=== PATIENT | female | born 1950 | race Caucasian/White ===

== ENCOUNTER 2021-04-03 03:58 | Outpatient (CLI) | payer MEDICARE, SELFPAY ==
--- NOTE | 2021-04-03 | DI.MAMMO_ITS ---
Exam(s) MAMMO SCREENING EXAM: MAMMO SCREENING CLINICAL HISTORY: SCREENING,Z12.31 TECHNIQUE: Bilateral full field digital CC and MLO mammographic images were obtained with 3D tomosyn thesis and utilizing computer aided detection (CAD). COMPARISON: Available for comparison. FINDINGS: Masses/Architectural Distortion: None seen. Microcalcifications: No suspicious pleomorphic-type are seen. Skin Thickening/Nipple Retraction: None. IMPRESSION: 1. No significant interval change with no specific features of malignancy noted. 2. Unless there is more urgent need, screening mammography is recommended, as per [employer] guidelines. BI-RADS Category 1 - Negative Breast Density - Category B - Scattered areas of fibroglandular density Breast density category C or D implies that the patient has dense breast tissue. Dense breast tissue is very common and is not abnormal but dense breast tissue can make it harder to find cancer on a ma mmogram. Also, dense breast tissue may increase their breast cancer risk. This information about the result of the mammogram report was provided to the patient to raise their awareness. Use this report when you speak with the patient about their risks for breast cancer, which includes their family hist ory. At that time, you may recommend for more screening tests (Ultrasound or MRI) as they might be us eful based on their risk. A negative radiographic report should not delay biopsy if a dominant or clinically suspicious mass is present. Up to ten percent of cancers are not identified on mammography. A negative report may reinforce clinical impression. Adenosis and dense breasts may obscure an underlying neoplasm. False positive reports average 6 to 10%. Patient will receive a letter notifying them of these results.
== END 2021-04-03 04:18 ==
PROVIDERS: Visit Provider Internal Medicine
DX: Z12.31 Encounter for screening mammogram for malignant neoplasm of breast (principal)
CPT/HCPCS: 77063; 77067

== ENCOUNTER 2021-05-12 01:34 | Outpatient (CLI) | payer MEDICARE, SELFPAY ==
--- NOTE | 2021-05-12 | DI.CT_ITS ---
Exam(s) CT CHEST/ABD/PEL W EXAM: CT CHEST/ABD/PEL W CLINICAL HISTORY: COLON CANCER C18.2, S/P RESECTION AND CHEMO, RESTAGING. TECHNIQUE: Imaging Protocol: Axial computed tomography images with coronal and sagittal reformatted images were created and reviewed CONTRAST MATERIAL: Intravenous: Omnipaque 350 Contrast volume:100 ml Oral: None COMPARISON: No exams were available for comparison FINDINGS: CHEST: LUNGS: There are no confluent infiltrates nor pleural effusions. There are no metastatic appearing p ulmonary nodules. No significant focal findings in the trachea and mainstem bronchi.. MEDIASTINUM: There is no hilar nor mediastinal adenopathy. Visualized thyroid unremarkable. CARDIAC: Heart size is normal. There is no pericardial effusion.Caliber of the thoracic aorta is wit hin normal limits. OSSEOUS: Sclerotic bone density noted in the posterior aspect of 1 of of an upper thoracic vertebral body which is most probably benign bone island. No lytic osseous lesions identified.. ABDOMEN: There is no ascites. LIVER: There are no focal hepatic lesions nor dilatation of intrahepatic ducts. GALLBLADDER/BILIARY: No obvious gallbladder pathology. CBD is not dilated. PANCREAS: No evidence of pancreatic mass nor dilatation of the pancreatic duct. SPLEEN: Spleen is not enlarged. There are no intrasplenic lesions. Splenic and portal veins are trevino nt. ADRENALS: There are no significant adrenal masses. KIDNEYS: No calculi nor hydronephrosis. No solid renal masses. No cysts evident. ABDOMINAL AORTA: Abdominal aorta is not enlarged. LYMPH NODES: There is no retroperitoneal nor paraaortic adenopathy. ABDOMINAL WALL: No evidence of significant anterior abdominal wall nor inguinal hernia. GI: There has been partial right hemicolectomy. No bowel obstruction. No leak. No abscess. No selena e air. PELVIS: LYMPH NODES: There is no intrapelvic nor inguinal adenopathy. GI: Is appendix surgically absent.No evidence of sigmoid diverticulitis. URINARY BLADDER: Difficult to assess because of beam hardening artifact from bilateral hip prostheses . REPRODUCTIVE: Uterus and adnexal regions somewhat obscured by beam hardening artifact. No obvious ma sses. No free fluid OSSEOUS: Bilateral hip prostheses. There is benign-appearing sclerotic bone lesion in the right meka c bone. Probably a benign bone island. No lytic osseous lesions identified. IMPRESSION: 1. No metastatic appearing disease in the chest. 2. Partial right hemicolectomy. No evidence of bowel obstruction or free air nor abscess. 3. No abnormal mesenteric masses nor adenopathy. No ascites. 4. Few sclerotic bone lesions which have appearance of benign bone islands more so than metastatic di sease. No lytic osseous lesions identified. There are bilateral hip prostheses. RADIATION DOSE DELIVERED: 1,328.42mGy.cm Total DLP DATA REPOSITORY: All CT scans at this facility are submitted to the National Radiology Data Registry (NRDR) Dose Index Registry (DIR) with the [employer] ([employer]). RADIATION OPTIMIZATION: All CT scans at this facility use at least one of these dose optimization te chniques: automated exposure control; mA and/or kV adjustment per patient size (includes targeted exa ms where dose is matched to clinical indication); or iterative reconstruction.
[2021-05-12] MEDS: Breeza Beverage 473 ML BTL PO (08:06)
[2021-05-12] MEDS: Omnipaque 350 MG/ML 50 ML BTL IJ (08:06)
[2021-05-12 08:12] LABS: Abs Immature Grans 0.01 10^3/uL (0.0-0.06); Absolute Basophil Count 0.05 10^3/uL (0.0-0.2); Absolute Lymphocyte Count 1.91 10^3/uL (1.2-3.4); Absolute Monocyte Count 0.49 10^3/uL (0.1-0.8); Absolute Neutrophil Count 2.51 10^3/uL (1.2-6.7); Eosinophils % 3.9; HCT 40.2 % (36.0-46.0); Immature Grans % 0.2; Lymphocytes % 36.9; MCH 29.8 pg (27.0-33.0); MCHC 32.3 % (32.0-36.0); MCV 92.2 fL (80-95); MPV 11.1 fL (8.0-11.0); Monocytes % 9.5; Neutrophils % 48.5; Nucleated RBC 0 %; Platelet Count 185 10^3/uL (130-400); RBC 4.36 10^6/uL (3.93-5.22); RDW 13.1 % (11.7-14.6); RDW-SD 44.5 fL; WBC 5.17 10^3/uL (4.4-10.8)
[2021-05-12 08:27] LABS: ALT 19 U/L (14-59); AST 17 U/L (15-37); Albumin 3.7 g/dL (3.4-5.0); Alkaline Phosphatase 132 U/L (46-116); BUN 15 mg/dL (7-18); Bilirubin, Total 0.3 mg/dL (0.2-1.0); CREATININE 0.7 mg/dL (0.55-1.02); Calcium 8.8 mg/dL (8.5-10.1); Chloride 104 mmol/L (98-107); Glucose 99 mg/dL (74-106); Sodium 148 mmol/L (136-145)
[2021-05-12] MEDS: Omnipaque 350 MG/ML 100 ML BTL IJ (09:28)
[2021-05-12] MEDS: Normal Saline - Diluent 50 ML VIAL IV (09:29)
[2021-05-12 18:17] LABS: CEA 2.5 ng/mL (See Note)
== END 2021-05-12 01:54 ==
PROVIDERS: Visit Provider Internal Medicine Hematology & Oncology
DX: C18.2 Malignant neoplasm of ascending colon (principal); M85.68 Other cyst of bone, other site
CPT/HCPCS: 74177; 80053; 71260; 82378; 85025; J3490; Q9967

== ENCOUNTER 2021-08-28 03:43 | Outpatient (CLI) | payer MEDICARE, SELFPAY ==
[2021-08-28 12:58] LABS: Abs Immature Grans 0.01 10^3/uL (0.0-0.06); Absolute Basophil Count 0.05 10^3/uL (0.0-0.2); Absolute Eosinophil Count 0.07 10^3/uL (0.0-0.7); Absolute Lymphocyte Count 2.12 10^3/uL (1.2-3.4); Absolute Monocyte Count 0.48 10^3/uL (0.1-0.8); Absolute Neutrophil Count 3.27 10^3/uL (1.2-6.7); Basophils % 0.8; Eosinophils % 1.2; HCT 39.1 % (36.0-46.0); HGB 12.7 g/dL (11.2-15.7); Immature Grans % 0.2; Lymphocytes % 35.3; MCH 30.5 pg (27.0-33.0); MCHC 32.5 % (32.0-36.0); MCV 93.8 fL (80-95); MPV 11.6 fL (8.0-11.0); Neutrophils % 54.5; Nucleated RBC 0 %; Platelet Count 169 10^3/uL (130-400); RBC 4.17 10^6/uL (3.93-5.22); RDW 13.8 % (11.7-14.6); RDW-SD 46.9 fL
[2021-08-28 13:10] LABS: ALT 23 U/L (14-59); AST 23 U/L (15-37); Albumin 3.8 g/dL (3.4-5.0); Alkaline Phosphatase 106 U/L (46-116); Anion Gap 7.6 mmol/L (3-11); BUN 24 mg/dL (7-18); Bilirubin, Total 0.4 mg/dL (0.2-1.0); CO2 25.4 mmol/L (21.0-32.0); CREATININE 0.9 mg/dL (0.55-1.02); Calcium 9.3 mg/dL (8.5-10.1); Chloride 107 mmol/L (98-107); Glucose 113 mg/dL (74-106); Potassium 4.3 mmol/L (3.5-5.1); Sodium 140 mmol/L (136-145); Total Protein 7.1 g/dL (6.4-8.2)
[2021-08-28 23:32] LABS: CEA 2.2 ng/mL (See Note)
== END 2021-08-28 03:44 | disposition home or self-care (01) ==
LOC: LBO 03:44
PROVIDERS: Visit Provider Internal Medicine Hematology & Oncology
DX: C18.2 Malignant neoplasm of ascending colon (principal)
CPT/HCPCS: 36415; 80053; 82378; 85025

== ENCOUNTER 2021-09-22 21:20 | Outpatient (REF) | payer MEDICARE, SELFPAY ==
[2021-09-22 21:51] LABS: Anion Gap 11.2 mmol/L (3-11); BUN 16 mg/dL (7-18); CO2 24.8 mmol/L (21.0-32.0); CREATININE 0.8 mg/dL (0.55-1.02); Calcium 9.1 mg/dL (8.5-10.1); Calculated LDL 138 mg/dL (<100); Chloride 106 mmol/L (98-107); Cholesterol 213 mg/dL (<200); Glucose 123 mg/dL (74-106); HDL Cholesterol 52 mg/dL (40-60); Potassium 3.9 mmol/L (3.5-5.1); Sodium 142 mmol/L (136-145); Triglyceride 117 mg/dL (<150)
[2021-09-24 06:51] LABS: Vitamin D 25 Total 104.4 ng/mL (30-100)
== END 2021-09-22 21:21 | disposition home or self-care (01) ==
LOC: NCHCN 21:20
PROVIDERS: Visit Provider Internal Medicine
DX: E78.5 Hyperlipidemia, unspecified (principal); E55.9 Vitamin D deficiency, unspecified
CPT/HCPCS: 80048; 80061; 82306

== ENCOUNTER → 2022-06-24 01:59 | Outpatient (CLI) | payer MEDICARE, SELFPAY ==
[2022-06-24] MEDS: Barium Sulfate 2% W/V-Berry Smoothie 450 ML BTL 900 ML PO (08:39)
[2022-06-24 08:43] LABS: Abs Immature Grans 0.01 10^3/uL (0.0-0.06); Absolute Basophil Count 0.05 10^3/uL (0.0-0.2); Absolute Eosinophil Count 0.12 10^3/uL (0.0-0.7); Absolute Lymphocyte Count 2.59 10^3/uL (1.2-3.4); Absolute Monocyte Count 0.57 10^3/uL (0.1-0.8); Basophils % 0.8; Eosinophils % 1.9; HCT 40.3 % (36.0-46.0); HGB 13.2 g/dL (11.2-15.7); Immature Grans % 0.2; Lymphocytes % 40.2; MCH 30.5 pg (27.0-33.0); MCHC 32.8 % (32.0-36.0); MCV 93 fL (80-95); MPV 11.2 fL (8.0-11.0); Monocytes % 8.9; Platelet Count 217 10^3/uL (130-400); RBC 4.33 10^6/uL (3.93-5.22); RDW 12.9 % (11.7-14.6); RDW-SD 44.3 fL; WBC 6.44 10^3/uL (4.4-10.8)
[2022-06-24 08:55] LABS: ALT 18 U/L (14-59); AST 25 U/L (15-37); Albumin 3.8 g/dL (3.4-5.0); Alkaline Phosphatase 89 U/L (46-116); Anion Gap 6.6 mmol/L (3-11); BUN 13 mg/dL (7-18); Bilirubin, Total 0.4 mg/dL (0.2-1.0); CO2 27.4 mmol/L (21.0-32.0); Calcium 9.1 mg/dL (8.5-10.1); Chloride 105 mmol/L (98-107); Estimated GFR 60.23 (mL/min/1.73m2); Glucose 94 mg/dL (74-106); Sodium 139 mmol/L (136-145); Total Protein 7.3 g/dL (6.4-8.2)
--- NOTE | 2022-06-24 10:35 | DI.CT_ITS ---
Exam(s) CT CHEST/ABD/PEL W EXAM: CT CHEST/ABD/PEL W CLINICAL HISTORY: H/O COLON CA S/P RESECTION AND CHEMO, C18.2, RESTAGING TECHNIQUE: Imaging Protocol: Axial computed tomography images with coronal and sagittal reformatted images were created and reviewed CONTRAST MATERIAL: Intravenous: Omnipaque 350 contrast volume:100 mL Oral: Yes COMPARISON: CT CT CHEST/ABD/PEL W from 05/12/2021 FINDINGS: CHEST: Tracheobronchial tree: Patent where visualized. Pulmonary parenchyma: No consolidation or dominant measurable mass. No architectural distortion. Stab le tiny subpleural nodules are seen in the left lower lobe. No suspicious or new pulmonary nodules a re seen. Visualized thyroid gland: Unremarkable. Mediastinum and Frances: No dominant adenopathy or fluid collection. The esophagus is unremarkable. Pleura: No effusion or pneumothorax. Heart: The heart is not dilated. No coronary artery calcifications are seen. No pericardial effusion. Pulmonary arteries: No pulmonary emboli are identified. Aorta: Thoracic aorta non-dilated. Atherosclerosis is present. There is no evidence of dissection. Lymph nodes: Within normal limits. Soft tissues: Unremarkable. Bones:Within normal limits for the patient's age. No aggressive osseous lesions are identified. ABDOMEN: Liver: Normal density. No measurable mass. Portal, Superior Mesenteric, and Splenic Veins: Unremarkable. Gallbladder and Biliary Tract: No radiodense calculus or dilation. Pancreas: Normal density, no abnormal calcifications or inflammatory process. Spleen: Normal. Adrenals: No masses seen. Kidneys: Normal size, contour and axis. No radiodense stones or obstructive uropathy. No masses seen. Abdominal Aorta: Abdominal portion non-dilated. Atherosclerosis is present. Bowel: There is no evidence of obstruction. There is a large amount of stool throughout the colon. Th ere has been a partial colectomy. No bowel wall thickening is seen. Peritoneal Cavity: No ascites, collection or mesenteric inflammatory response. No free air. Lymph Nodes: Within normal limits. Bones: Within normal limits for the patient's age. There is artifact in the pelvis from the patient' s bilateral total hip replacements. No aggressive osseous lesions are seen in the bones. Soft Tissues: Unremarkable. PELVIS: There is limited visualization of the pelvis due to artifact from the patient's orthopedic lou rdware. Bladder: No gross abnormality is seen on the visualized portions of the urinary bladder. Reproductive Organs: No gross abnormality is seen in the visualized portions of the reproductive orga ns. Lymph Nodes: Within normal limits. Bones: Within normal limits. IMPRESSION: 1. No evidence of metastatic disease in the chest. 2. No evidence of metastatic disease in the abdomen or pelvis. RADIATION DOSE DELIVERED: 1,165.67mGy.cm Total DLP DATA REPOSITORY: All CT scans at this facility are submitted to the National Radiology Data Registry (NRDR) Dose Index Registry (DIR) with the [employer] ([employer]). RADIATION OPTIMIZATION: All CT scans at this facility use at least one of these dose optimization te chniques: automated exposure control; mA and/or kV adjustment per patient size (includes targeted exa ms where dose is matched to clinical indication); or iterative reconstruction.
[2022-06-24] MEDS: Omnipaque 350 MG/ML 100 ML BTL IJ (10:38)
[2022-06-24] MEDS: Normal Saline Flush 10 ML SYR IVP (10:40)
[2022-06-24 19:48] LABS: CEA 2.6 ng/mL (See Note)
== END ==
PROVIDERS: Visit Provider Internal Medicine Hematology & Oncology
DX: C18.2 Malignant neoplasm of ascending colon (principal)
CPT/HCPCS: 74177; 80053; 71260; 82378; 85025; J3490

== ENCOUNTER 2022-10-21 16:45 | Outpatient (REF) | payer MEDICARE, SELFPAY ==
[2022-10-21 14:42] LABS: HCT 41.4 % (36.0-46.0); HGB 13.8 g/dL (11.2-15.7); MCH 30.3 pg (27.0-33.0); MCHC 33.3 % (32.0-36.0); MCV 91 fL (80-95); MPV 12.2 fL (8.0-11.0); Platelet Count 166 10^3/uL (130-400); RBC 4.56 10^6/uL (3.93-5.22); RDW 13.2 % (11.7-14.6); RDW-SD 43.8 fL; WBC 6.85 10^3/uL (4.4-10.8)
[2022-10-21 16:13] LABS: ALT 35 U/L (14-59); AST 32 U/L (15-37); Alkaline Phosphatase 98 U/L (46-116); Anion Gap 9.9 mmol/L (3-11); BUN 18 mg/dL (7-18); Bilirubin, Total 0.4 mg/dL (0.2-1.0); CO2 25.1 mmol/L (21.0-32.0); CREATININE 0.8 mg/dL (0.55-1.02); Calcium 9.4 mg/dL (8.5-10.1); Chloride 106 mmol/L (98-107); Estimated GFR 78.24 (mL/min/1.73m2); Glucose 96 mg/dL (74-106); Magnesium 2.2 mg/dL (1.8-2.4); Potassium 3.9 mmol/L (3.5-5.1); Sodium 141 mmol/L (136-145); TSH 1.47 uIU/mL (0.36-3.74); Total Protein 7.7 g/dL (6.4-8.2); Vitamin B12 667 pg/mL (193-986)
[2022-10-21 23:04] LABS: CEA 3.4 ng/mL (See Note)
[2022-10-22 14:04] LABS: Albumin 62.3 % (55.8-66.1); Albumin g/dL 4.5 g/dL (3.6-5.2); Total Protein 7.3 g/dL (6.3-8.2)
== END 2022-10-21 16:46 | disposition home or self-care (01) ==
LOC: NCHCN 16:45
PROVIDERS: Visit Provider Internal Medicine
DX: C18.2 Malignant neoplasm of ascending colon (principal); I10 Essential (primary) hypertension; G62.9 Polyneuropathy, unspecified; G25.2 Other specified forms of tremor
CPT/HCPCS: 80053; 85027; 82378; 82607; 83735; 84165; 84443

== ENCOUNTER 2023-01-05 02:51 | Outpatient (CLI) | payer MEDICARE, SELFPAY ==
[2023-01-05 08:08] LABS: Abs Immature Grans 0.02 10^3/uL (0.0-0.06); Absolute Basophil Count 0.06 10^3/uL (0.0-0.2); Absolute Eosinophil Count 0.22 10^3/uL (0.0-0.7); Absolute Lymphocyte Count 2.43 10^3/uL (1.2-3.4); Absolute Neutrophil Count 4.04 10^3/uL (1.2-6.7); Basophils % 0.8; HCT 42.7 % (36.0-46.0); HGB 13.8 g/dL (11.2-15.7); Immature Grans % 0.3; MCH 30.2 pg (27.0-33.0); MCHC 32.3 % (32.0-36.0); MCV 93 fL (80-95); MPV 11.2 fL (8.0-11.0); Monocytes % 8.1; Neutrophils % 54.8; Platelet Count 178 10^3/uL (130-400); RBC 4.57 10^6/uL (3.93-5.22); RDW 13.8 % (11.7-14.6); RDW-SD 47.2 fL; WBC 7.37 10^3/uL (4.4-10.8)
[2023-01-05 08:28] LABS: ALT 28 U/L (14-59); AST 22 U/L (15-37); Albumin 3.7 g/dL (3.4-5.0); Alkaline Phosphatase 88 U/L (46-116); Anion Gap 9.4 mmol/L (3-11); BUN 20 mg/dL (7-18); Bilirubin, Total 0.6 mg/dL (0.2-1.0); CO2 28.6 mmol/L (21.0-32.0); Calcium 8.8 mg/dL (8.5-10.1); Chloride 105 mmol/L (98-107); Estimated GFR 59.86 (mL/min/1.73m2); Glucose 105 mg/dL (74-106); Potassium 3.6 mmol/L (3.5-5.1); Sodium 143 mmol/L (136-145)
[2023-01-05 18:50] LABS: CEA 3.1 ng/mL (See Note)
== END 2023-01-05 02:52 | disposition home or self-care (01) ==
LOC: LBO 02:51
PROVIDERS: PCP Internal Medicine; Visit Provider Internal Medicine Hematology & Oncology
DX: C18.2 Malignant neoplasm of ascending colon (principal)
CPT/HCPCS: 36415; 80053; 82378; 85025

== ENCOUNTER 2023-02-01 19:26 | Outpatient (REF) | payer MEDICARE, SELFPAY ==
[2023-02-02 10:19] LABS: Lyme Ab w Rflx to Lyme Confirm Negative (Negative)
== END 2023-02-01 19:27 | disposition home or self-care (01) ==
LOC: NCHCN 19:26
PROVIDERS: PCP Internal Medicine; Visit Provider Internal Medicine
DX: Z00.00 Encounter for general adult medical examination without abnormal findings (principal)
CPT/HCPCS: 86618

== ENCOUNTER 2023-03-22 19:27 | Outpatient (REF) | payer MEDICARE, SELFPAY ==
[2023-03-22 18:20] LABS: Anion Gap 7.5 mmol/L (3-11); BUN 22 mg/dL (7-18); CO2 29.5 mmol/L (21.0-32.0); CREATININE 0.8 mg/dL (0.55-1.02); Calcium 9.1 mg/dL (8.5-10.1); Chloride 103 mmol/L (98-107); Estimated GFR 78.24 (mL/min/1.73m2); Glucose 87 mg/dL (74-106); Potassium 3.6 mmol/L (3.5-5.1); Sodium 140 mmol/L (136-145)
== END 2023-03-22 19:28 | disposition home or self-care (01) ==
LOC: NCHCN 19:27
PROVIDERS: PCP Internal Medicine; Visit Provider Internal Medicine
DX: I10 Essential (primary) hypertension (principal); R25.8 Other abnormal involuntary movements
CPT/HCPCS: 80048

== ENCOUNTER → 2023-04-13 02:15 | Outpatient (CLI) | payer MEDICARE, SELFPAY ==
--- NOTE | 2023-04-13 | DI.MAMMO_ITS ---
Exam(s) MAMMO SCREENING EXAM: MAMMO SCREENING CLINICAL HISTORY: SCREENING, Z12.31. TECHNIQUE: Bilateral full field digital CC and MLO mammographic images were obtained with 3D tomosyn thesis and utilizing computer aided detection (CAD). COMPARISON: Prior mammograms were reviewed. FINDINGS: There has been no significant change in the appearance and distribution of the fibroglandular tissue. There are no new spiculated masses nor malignant appearing microcalcification groups. There is no significant architectural distortion nor skin thickening-retraction. IMPRESSION: No radiographic evidence of malignancy. BI-RADS Category 1 - Negative Breast Density - Category B - Scattered areas of fibroglandular density Breast density Category C or D implies that the patient has dense breast tissue. Dense breast tissue can make it harder to find cancer on a mammogram. Dense breast tissue is also associated with an incr eased risk of breast cancer. This information about the result of the mammogram report was provided to the patient to raise their awareness. Use this report when you speak with the patient about their risks for breast cancer, which includes their family history. At that time, you may recommend additional screening tests (Ultrasoun d or MRI) as these tests may add significant information. A negative radiographic report should not delay biopsy if a dominant or clinically suspicious mass is present. Up to ten percent of cancers are not identified on mammography. A negative report may reinforce clinical impression. Adenosis and dense breasts may obscure an underlying neoplasm. False positive reports average 6 to 10%. Patient will receive a letter notifying them of these results.
== END ==
PROVIDERS: PCP Internal Medicine; Visit Provider Internal Medicine
DX: Z12.31 Encounter for screening mammogram for malignant neoplasm of breast (principal)
CPT/HCPCS: 77063; 77067

== ENCOUNTER 2023-05-21 07:48 | Emergency (ER) | payer MEDICARE, SELFPAY ==
[2023-05-21] VITALS (11 sets, daily range): BP systolic 146–148; BP diastolic 80–90; PULSE 68–82; RESP 13–20; TEMP 36.6–36.8; O2SAT 96–97
--- NOTE | 2023-05-21 08:00 | RT.EKG_ITS ---
APPROVED REPORT Exam: Resting ECG Reason for Exam: Heart pounding Patient Location: E HR:67 bpm ECG Measurements Heart Rate 67 AXIS SD 130 P 73 QRSd 92 QRS -23 QT 420 T 43 QTc 445 Conclusion Sinus rhythm...normal P axis, V-rate 60- 99 NSR, Normal intervals, LAD, Borderline LAE, No STTW changes, No STEMI, no previous available for francisca reese.
--- NOTE | 2023-05-21 08:12 | W.ED.GENAD ---
Discharge Plan Disposition Patient Disposition: Home Condition: Good Discharge Details Clinical Impression: Insomnia, Mild renal insufficiency, Anxiety, Acute hypokalemia Primary Care Provider: Alireza Peres ED Provider: Sally Toscano Home Meds and New Rx's Prescriptions: New hydroxyzine HCl 10 mg tablet 10 mg PO QHS PRNQty: 14 0RF Rx Instructions: 1 to 2 tablets at night as needed for insomnia potassium chloride 10 mEq tablet extended release 10 meq PO DAILY Qty: 10 0RF Rx Instructions: Take daily while on hydrochlorothiazide. Your potassium and kidney function should be rechecked by your primary care provider at the next visit. No Action hydrochlorothiazide 25 mg tablet 25 mg PO DAILY pregabalin 50 mg capsule 50 mg PO BID lisinopril 20 mg tablet 20 mg PO DAILY cholecalciferol (vitamin D3) 25 mcg (1,000 unit) capsule 25 mcg PO DAILY gabapentin 300 mg capsule 300 mg PO BID PRN Algal [place]-3 DHA 200 mg capsule 200 mg PO DAILY Collagen Plus Vitamin C 125-740 mg capsule 1 cap PO QDAY sertraline 25 mg tablet 25 mg PO DAILY Patient Comments: TAKE ONE TABLET BY MOUTH EVERY DAY sertraline 50 mg tablet 50 mg PO DAILY Patient Comments: TAKE ONE TABLET BY MOUTH EVERY DAY START AFTER TAKING ONE WEEK OF 25MG DAILY Rx Instructions: TAKE ONE TABLET BY MOUTH EVERY DAY START AFTER TAKING ONE WEEK OF 25MG DAILY buspirone 5 mg tablet 5 mg PO BID Patient Comments: TAKE ONE TABLET BY MOUTH TWICE A DAY Discharge Instructions Instructions: Hypokalemia (ED), Insomnia (ED), Anxiety (ED), Impaired Kidney Function (ED) Additional Instructions: 1. Start hydroxyzine 25 mg, 1 tablet at night as needed to help you sleep. 2. Start 10 mEq of potassium once a day until you follow-up with your primary care next week. 3. Return here for any new or worrisome symptoms and keep your follow-up appointment with your primary care next week. Discharge Data Discharge Physician: Sally Toscano Medical Decision Making This is a 72-year-old female who presents with gradually increasing anxiety and insomnia. She is denying any homicidal or suicidal ideation. She also endorses weight loss but denies any chest pain or shortness of breath. She denies any hallucinations. She was seen by her primary care who started her on 25 mg of sertraline a week ago. She has not been using any alcohol or stimulants. She has not tried any [id number] sleep aids. We will check her white count and H&H as well as a comprehensive metabolic panel to check her electrolytes and renal function as well as LFTs. I have already reviewed her EKG which is normal except for left axis deviation and borderline left atrial enlargement. We we will check her TSH to evaluate for hyperthyroidism. Since she is not homicidal or suicidal we will likely discharge her home. I will check interactions between her medications and melatonin, diphenhydramine and trazodone and likely discharge her with outpatient follow-up with her primary care provider. Differential Diagnosis Differential Diagnosis: Anxiety and insomnia, hypothyroidism, anemia, electrolyte abnormality Medical Records Medical records reviewed: Yes I reviewed the patient's medical records. Lab Data Lab results reviewed: Yes I reviewed the patient's lab results. Lab results narrative: Normal CBC. Urinalysis reveals elevated specific gravity 30 mg/dL of protein trace blood elevated urobilinogen negative leukocyte esterase, negative nitrite ECG Data Attestation: I personally reviewed and interpreted this ECG (s) as follows: Prior ECG tracings: available for review HPI General Mode of arrival: ambulatory. Date/Time Provider Initiated Documentation: 05/21/23 08:12. Limitations to Documentation: no limitations. Information obtained by: patient. HPI Narrative: Time seen was on arrival in bed 8. Patient is a 72-year-old female who presents with complaints of anxiety and insomnia which has been gradually increasing over 2 months. The patient lives alone but has a dog. She says she has not slept well for months and states she has not slept at all the last 2 days. She denies any excessive use of caffeine or other stimulants such as decongestants. She states she came in today because her brother is coming to visit in 3 days. He lives in [facility]. She asked him to come visit her and help her because she has such a a lot of wood to chop. She denies any suicidal or homicidal ideation. She denies any previous similar episodes. She does endorse decreased energy and a 12 pound weight loss over several weeks. She denies using any alcohol or drugs. She denies any hallucinations. She made an appointment see her primary care provider Dr. Peres and saw one of their associates, who prescribed sertraline for anxiety about a week ago. They told her it would help with her insomnia but she has not noticed any difference. She also states that at times she feels her heart pounding but has not noted that it was faster than usual. The heart pounding is usually associated with thoughts of things she has to do or memories. She denies any history of PTSD. She denies any chest pain or shortness of breath. She denies leg swelling. She has a history of lymphoma diagnosed by exploratory laparotomy in her 20s. She states it was successfully treated. Several years ago she was found to have colon cancer and underwent a resection with chemotherapy. This was about 5 years ago and she has not had any recurrence. She denies any dysuria, abdominal pain, blood in the stool, swollen lymph nodes, rashes, headache or blurry vision. She has not tried any [id number] medications for her insomnia because she was concerned they might interact with the sertraline. She believes that she has had her thyroid checked within the last year. She recently received immunizations for influenza and COVID. She does take hydrochlorothiazide and lisinopril for hypertension. Related Data Home Medications Medication Instructions Recorded Confirmed ascorbic acid 125 mg-collagen, 1 cap PO QDAY 03/07/23 05/21/23 hydrolyzed 740 mg capsule (Collagen Plus Vitamin C) cholecalciferol (vitamin D3) 25 25 mcg PO DAILY 03/07/23 05/21/23 mcg (1,000 unit) capsule docosahexaenoic acid 200 mg 200 mg PO DAILY 03/07/23 05/21/23 capsule (Algal [place]-3 DHA) gabapentin 300 mg capsule 300 mg PO BID PRN 03/07/23 05/21/23 hydrochlorothiazide 25 mg tablet 25 mg PO DAILY 03/07/23 05/21/23 lisinopril 20 mg tablet 20 mg PO DAILY 03/07/23 05/21/23 pregabalin 50 mg capsule 50 mg PO BID 03/07/23 05/21/23 buspirone 5 mg tablet 5 mg PO BID 05/21/23 05/21/23 hydroxyzine HCl 10 mg tablet 10 mg PO QHS PRN #14 tabs 05/21/23 potassium chloride 10 mEq 10 meq PO DAILY #10 tabs 05/21/23 tablet,extended release sertraline 25 mg tablet 25 mg PO DAILY 05/21/23 05/21/23 sertraline 50 mg tablet 50 mg PO DAILY 05/21/23 05/21/23 Previous Rx's Medication Instructions Recorded hydroxyzine HCl 10 mg tablet 10 mg PO QHS PRN #14 tabs 05/21/23 potassium chloride 10 mEq 10 meq PO DAILY #10 tabs 05/21/23 tablet,extended release Allergies Allergy/AdvReac Type Severity Reaction Status Date / Time Penicillins Allergy Intermediate Verified 05/21/23 08:15 General Stated Complaint: Anxiety NATALY: 3 Review of Systems Narrative: see hpi Gastrointestinal Comments: No GI bleeding Genitourinary Genitourinary: Denies dysuria, Denies urinary hesitancy and Denies urinary urgency Musculoskeletal Comments: No leg pain or swelling Neurologic Comments: No headaches Psychiatric Psychiatric: Reports abnormal sleep pattern, Reports anxiety, Denies visual hallucinations, Denies homicidal ideation and Denies suicidal ideation Comments: The patient states she hears music in her head all the time. 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 PFSH All Active Problems (Updated 05/21/23 @ 11:02 by Sally Toscano MD) Acute hypokalemia (Acute) Anxiety (Chronic) Mild renal insufficiency (Acute) Insomnia (Acute) Medical History (Updated 05/21/23 @ 11:02 by Sally Toscano MD) History of colon cancer Essential hypertension Vitamin D deficiency Hyperlipidemia History of degenerative joint disease Osteoarthritis Hip pain Low back pain Segmental and somatic dysfunction Peripheral neuropathy Pulmonary nodule Hx of colonic polyps Ceruminosis Venous insufficiency Anosmia Action tremor Dry skin Generalized anxiety disorder Bradykinesia Surgical History (Updated 05/21/23 @ 08:47 by Sally Toscano MD) S/P colon resection History of laparotomy Social History Smoking/Tobacco Use Status: Never Smoking risk assessment performed?: Yes Alcohol Intake: current Alcohol Intake frequency: holidays/special occasions only Alcohol type: wine Drug use: Occasionally Substance use type: marijuana Details: Pt used to smoke marijuana to help w/ sleeping; stopped working around 1 month ago Housing: house current occupation: retired What is your relationship status?: Panel score (0-1 are the most socially isolated patients): 0 Do you feel safe at home: Yes Do you feel safe in your relationship?: Yes Female Reproductive History Menstrual Menopause type: natural Exam Const General: cooperative, healthy appearing, comfortable, no acute distress, well developed, well groomed and well hydrated Nutritional Appearance: average body habitus and well nourished Orientation: alert, awake and oriented x3 HENMT Head: normal to inspection, normocephalic and atraumatic Ears: hearing grossly normal bilaterally and external ears normal General nose exam: external nose normal, nares normal and no nasal discharge Face and sinus: normal facial exam, sinuses nontender and face symmetric Mouth: oral mucosae normal, lip normal, tongue normal, oropharynx normal, moist mucous membranes and other (Normal phonation. The patient is handling secretions.) Throat: posterior oropharynx normal and uvula midline Eyes General: appearance normal, both eyes and all related structures Eyelids: eyelids normal Conjunctivae: conjunctivae normal Sclera: sclerae normal Cornea: corneas normal Pupils: PERRL EOM: EOM intact bilaterally and No nystagmus Neck Neck: normal visual inspection, full ROM, no lymphadenopathy, no meningeal signs, trachea midline and supple Lymphatic: no lymphadenopathy noted Chest Chest: normal inspection of the chest Resp Effort & Inspection: normal respiratory effort, able to speak in complete sentences, no audible wheezes, no nasal flaring, no respiratory distress, no retractions, no stridor, not tachypneic, no tracheal deviation, no use of accessory muscles, No prolonged expiratory phase and other (Normal inspiratory to expiratory ratio.) Auscultation: clear to auscultation bilaterally, no rales, no rhonchi, no wheezes and no rubs Tactile Fremitus: tactile fremitus absent Cardio Jugular venous pressure: no JVD Palpation: normal PMI Rate: regular rate Rhythm: regular rhythm Heart Sounds: S1 normal, S2 normal, no gallops, no murmurs and no rubs GI Inspection: normal to inspection and non-distended Palpation: soft, no hepatosplenomegaly, no guarding and nontender Percussion: normal to percussion Auscultation: normal bowel sounds General: No CVA tenderness Back/Spine/Pelvis Back: no CVA tenderness and No back tenderness Cervical Spine: normal cervical lordosis, cervical ROM normal, No cervical muscular tenderness, No pain with cervical ROM, No cervical spinal tenderness and No step off deformity Thoracic/Lumbar Spine: thoracic and lumbar spine normal to inspection, No thoracic spinal tenderness and No lumbar spinal tenderness Pelvis: no pain with anterior-posterior compression and no pain with lateral compression Skin General skin exam: no rashes or lesions noted, turgor normal, no petechiae, no purpura and other (Skin is normal for ethnicity.) Lesions: no lesions Rashes: no rashes Trauma: no lacerations or abrasions Neuro General: patient alert, patient awake, patient oriented x3, moves all extremities, no meningeal signs, no focal motor deficits and CN's II-XI intact bilaterally Cranial Nerves: CN's II-XI intact bilaterally, PERRL, accommodation normal, EOM intact bilaterally, no nystagmus, facial strength normal, tongue midline, hearing normal and no nystagmus Cognition: normal cognition Speech: speech normal Gait: normal gait Motor: muscle tone normal throughout and strength 5/5 throughout Sensory Exam: no sensory deficits noted Extrem General: normal to inspection, full ROM, capillary refill normal, no clubbing, cyanosis or edema and no calf tenderness Psych Appearance: grossly normal Affect: normal affect Attitude: cooperative Thought Process: normal Thought Content: normal Insight: insight good Judgment: judgment good Other: The patient appears to have capacity make medical decisions. Course Social determinants of health: The patient lives alone. She has a dog. She chops her own wood. She still drives and cooks her own food but does not have any other assistance. She tells me that she has asked her [place] help her. Reevaluation(s) Time: 09:33 Reevaluation: The patient is hypokalemic with a potassium of 2.8. She has mild renal insufficiency with a creatinine of 1.2 GFR of 48.09. I have written for 40 mEq of potassium p.o. and will likely recheck it after 1 hour. I will notify the patient. 9:38 AM I have notified the patient of the mild renal insufficiency and hypokalemia normal TSH. My plan is to give her p.o. potassium now and then recheck her potassium in an hour. 10:22 AM I have consulted the pharmacist regarding the patient's insomnia after checking [facility]. She recommended hydroxyzine 25 mg p.o. nightly as needed. The patient's repeat potassium is pending. 10:25 AM The patient tells me she was on gabapentin for neuropathy in her mouth while playing the flute. She said she was given buspirone along with the sertraline but after 2 doses she discontinued it because it made her feel jittery and as though her heart was racing. 10:45 AM I have updated the patient on her repeat potassium and have advised the patient to follow-up with her primary care provider she believes she has an appointment already in a week. I have advised her to return here if she develops any new or worrisome symptoms, such as thoughts of hurting herself or anyone else. I have advised her against eating chocolate because of the methylxanthine's. She states she does not eat chocolate. I have advised her to get exercise and avoid stimulants and to return here for any new or worrisome symptoms. The patient voiced understanding agreement with the discharge plan. All her questions and concerns were addressed prior to discharge. 10:49 AM: I have reviewed the patient's medications and she is also taking hydrochlorothiazide but not take any potassium supplements. I have advised her I will write a prescription for 10 mEq of hydrochlorothiazide to take once a day 11:27 AM: The patient is not taking additional potassium supplements but is continuing on hydrochlorothiazide. 11:33 AM: I have called the patient's pharmacy and they have received her prescriptions. Vital Signs Vital signs: Vital Signs Temperature 36.6 C 05/21/23 07:55 Pulse 82 05/21/23 07:55 Respiratory Rate 14 05/21/23 07:55 Blood Pressure 148/90 H 05/21/23 07:55 Pulse Oximetry 97 05/21/23 07:55 Temperature 36.6 C 05/21/23 07:55 Temperature Source Temporal Artery Scan 05/21/23 07:55 Pulse 82 05/21/23 07:55 Respiratory Rate 14 05/21/23 07:55 Blood Pressure 148/90 H 05/21/23 07:55 Blood Pressure Position Sitting 05/21/23 07:55 Pulse Oximetry 97 05/21/23 07:55 Oxygen Delivery Method Room Air 05/21/23 07:55 Oxygen Flow Rate 0 05/21/23 07:55 Pain Level 0 05/21/23 07:55
[2023-05-21 08:48] LABS: Bilirubin Negative (Negative); Blood Trace-intact (Negative); Clarity Clear (Clear); Glucose Negative (Negative); Ketones Negative (Negative); Leukocyte Esterase Negative (Negative); Nitrite Negative (Negative); Specific Gravity >= 1.030 (1.005-1.025)
[2023-05-21 08:55] LABS: Bacteria Negative HPF (Negative); C & S Indicated? No; Casts 0-2 Hyaline LPF (Negative); Crystals Negative HPF (Negative); Epithelial Cells Few HPF (Negative); Mucus Moderate (Negative); RBC 0-2 HPF (0-2); WBC Negative HPF (0-5)
[2023-05-21 08:56] LABS: Abs Immature Grans 0.02 10^3/uL (0.0-0.06); Absolute Basophil Count 0.04 10^3/uL (0.0-0.2); Absolute Eosinophil Count 0.03 10^3/uL (0.0-0.7); Absolute Lymphocyte Count 1.96 10^3/uL (1.2-3.4); Absolute Monocyte Count 0.57 10^3/uL (0.1-0.8); Absolute Neutrophil Count 4.14 10^3/uL (1.2-6.7); Basophils % 0.6; Eosinophils % 0.4; HCT 40.7 % (36.0-46.0); HGB 13.9 g/dL (11.2-15.7); Immature Grans % 0.3; MCH 31.1 pg (27.0-33.0); MCHC 34.2 % (32.0-36.0); MCV 91 fL (80-95); Monocytes % 8.4; Neutrophils % 61.3; Platelet Count 194 10^3/uL (130-400); RBC 4.47 10^6/uL (3.93-5.22); RDW 12.8 % (11.7-14.6); RDW-SD 42.5 fL; WBC 6.76 10^3/uL (4.4-10.8)
[2023-05-21 09:21] LABS: ALT 23 U/L (14-59); AST 19 U/L (15-37); Alkaline Phosphatase 60 U/L (46-116); Anion Gap 6.3 mmol/L (3-11); BUN 25 mg/dL (7-18); Bilirubin, Total 0.8 mg/dL (0.2-1.0); CO2 30.7 mmol/L (21.0-32.0); CREATININE 1.2 mg/dL (0.55-1.02); Calcium 9.6 mg/dL (8.5-10.1); Chloride 104 mmol/L (98-107); Estimated GFR 48.09 (mL/min/1.73m2); Glucose 112 mg/dL (74-106); Sodium 141 mmol/L (136-145); TSH (W/Ref FT4) 1.24 uIU/mL (0.36-3.74); Total Protein 7.5 g/dL (6.4-8.2); Troponin I < 50 ng/L (<or=60)
[2023-05-21 09:27] LABS: Potassium 2.8 mmol/L (3.5-5.1)
[2023-05-21] MEDS: Potassium Chloride 20 MEQ TABCR 40 MEQ PO (09:37)
[2023-05-21 10:35] LABS: Anion Gap 7.4 mmol/L (3-11); BUN 24 mg/dL (7-18); CO2 29.6 mmol/L (21.0-32.0); Calcium 9.6 mg/dL (8.5-10.1); Chloride 104 mmol/L (98-107); Estimated GFR 59.86 (mL/min/1.73m2); Glucose 104 mg/dL (74-106); Potassium 3.2 mmol/L (3.5-5.1); Sodium 141 mmol/L (136-145)
== END 2023-05-21 11:39 | disposition home or self-care (01) ==
PROVIDERS: Emergency Provider Emergency Medicine Emergency Medical Services; PCP Internal Medicine
DX: R41.9 Unspecified symptoms and signs involving cognitive functions and awareness (principal); G47.00 Insomnia, unspecified; N28.9 Disorder of kidney and ureter, unspecified; E87.6 Hypokalemia; I10 Essential (primary) hypertension; E78.5 Hyperlipidemia, unspecified; E55.9 Vitamin D deficiency, unspecified; Z79.899 Other long term (current) drug therapy
CPT/HCPCS: 36415; 80048; 80053; 93005; 99283; 81003; 81015; 83735; 84443; 84484; 85025; 93010

== ENCOUNTER 2023-05-27 22:25 | Outpatient (REF) | payer MEDICARE, SELFPAY ==
[2023-05-27 14:36] LABS: Anion Gap 9.6 mmol/L (3-11); BUN 19 mg/dL (7-18); CO2 28.4 mmol/L (21.0-32.0); Calcium 10.1 mg/dL (8.5-10.1); Chloride 102 mmol/L (98-107); Estimated GFR 59.86 (mL/min/1.73m2); Glucose 125 mg/dL (74-106); Potassium 3.9 mmol/L (3.5-5.1); Sodium 140 mmol/L (136-145)
== END 2023-05-27 22:26 | disposition home or self-care (01) ==
LOC: NCHCN 22:25
PROVIDERS: PCP Internal Medicine; Visit Provider Family Medicine
DX: E87.6 Hypokalemia (principal); I10 Essential (primary) hypertension; N28.9 Disorder of kidney and ureter, unspecified
CPT/HCPCS: 80048

== ENCOUNTER 2023-06-08 12:49 | Outpatient (REF) | payer MEDICARE, SELFPAY ==
[2023-06-08 15:07] LABS: Anion Gap 8.6 mmol/L (3-11); BUN 9 mg/dL (7-18); CO2 27.4 mmol/L (21.0-32.0); CREATININE 0.8 mg/dL (0.55-1.02); Calcium 10.1 mg/dL (8.5-10.1); Chloride 104 mmol/L (98-107); Estimated GFR 78.24 (mL/min/1.73m2); Glucose 118 mg/dL (74-106); Potassium 4.2 mmol/L (3.5-5.1); Sodium 140 mmol/L (136-145)
[2023-06-08 15:35] LABS: Vitamin D 25 Total 65.1 ng/mL (30-100)
== END 2023-06-08 12:50 | disposition home or self-care (01) ==
LOC: NCHCN 12:49
PROVIDERS: PCP Internal Medicine; Visit Provider Family Medicine
DX: E67.3 Hypervitaminosis D (principal)
CPT/HCPCS: 80048; 82306

== ENCOUNTER 2023-06-13 14:32 | Outpatient (REF) | payer MEDICARE, SELFPAY ==
[2023-06-13 16:33] LABS: ALT 24 U/L (14-59); AST 20 U/L (15-37); Albumin 4.2 g/dL (3.4-5.0); Alkaline Phosphatase 64 U/L (46-116); BUN 14 mg/dL (7-18); Bilirubin, Total 0.5 mg/dL (0.2-1.0); CREATININE 0.9 mg/dL (0.55-1.02); Calcium 10.2 mg/dL (8.5-10.1); Chloride 103 mmol/L (98-107); Estimated GFR 67.92 (mL/min/1.73m2); Glucose 123 mg/dL (74-106); Potassium 4.3 mmol/L (3.5-5.1); Sodium 139 mmol/L (136-145); Total Protein 7.6 g/dL (6.4-8.2)
== END 2023-06-13 14:33 | disposition home or self-care (01) ==
LOC: NCHCN 14:32
PROVIDERS: PCP Internal Medicine; Visit Provider Internal Medicine
DX: R53.1 Weakness (principal); I10 Essential (primary) hypertension; R73.09 Other abnormal glucose
CPT/HCPCS: 80053

== ENCOUNTER 2023-06-16 12:27 | Outpatient (REF) | payer SELFPAY ==
[2023-06-16 14:17] LABS: ALT 23 U/L (14-59); AST 19 U/L (15-37); Alkaline Phosphatase 65 U/L (46-116); Anion Gap 8.9 mmol/L (3-11); BUN 16 mg/dL (7-18); Bilirubin, Total 0.6 mg/dL (0.2-1.0); CO2 30.1 mmol/L (21.0-32.0); Calcium 9.7 mg/dL (8.5-10.1); Chloride 102 mmol/L (98-107); Estimated GFR 59.86 (mL/min/1.73m2); Glucose 143 mg/dL (74-106); Potassium 4.4 mmol/L (3.5-5.1); Sodium 141 mmol/L (136-145); Total Protein 7.1 g/dL (6.4-8.2)
== END 2023-06-16 12:28 | disposition home or self-care (01) ==
LOC: NCHCN 12:27
PROVIDERS: PCP Internal Medicine; Visit Provider Internal Medicine
DX: I10 Essential (primary) hypertension (principal)
CPT/HCPCS: 80053

== ENCOUNTER 2023-06-24 03:04 | Outpatient (CLI) | payer MEDICARE, SELFPAY ==
[2023-06-24 10:18] LABS: Hemoglobin A1C 5.6 % (<5.7)
[2023-06-24 10:23] LABS: Calcium 9.8 mg/dL (8.5-10.1)
[2023-06-24 21:04] LABS: Parathyroid Hormone,Intact 34 pg/mL (19-88)
== END 2023-06-24 03:05 | disposition home or self-care (01) ==
LOC: LBO 03:04
PROVIDERS: PCP Internal Medicine; Visit Provider Internal Medicine
DX: Z00.00 Encounter for general adult medical examination without abnormal findings (principal)
CPT/HCPCS: 36415; 82310; 83036; 83970

== ENCOUNTER 2023-06-27 12:59 | Emergency (ER) | payer MEDICARE, SELFPAY ==
[2023-06-27 13:27] VITALS: BP 149/95; PULSE 74; RESP 16; TEMP 37.1; O2SAT 97
--- NOTE | 2023-06-27 14:28 | DI.CT_ITS ---
Exam(s) CT HEAD WO/W EXAM: CT HEAD WO/W CLINICAL HISTORY: Concern for subacute CVA. TECHNIQUE: Imaging Protocol: Both noninfused and contrast infused CT scans of the brain were perform ed. IV Contrast Dose =75 cc Axial computed tomography images with coronal and sagittal reformatted images were created and review ed COMPARISON: No exams were available for comparison FINDINGS: There are no skull fractures nor fluid in the visualized paranasal sinuses. There is no evidence of intracranial hemorrhage, mass effect, or shift of midline structures. There are no extra-axial fluid collections. The ventricles are not enlarged or shifted and there is no blo od within the ventricular system nor within the basal cisterns.There is moderate bilateral periventri cular hypodensity consistent with chronic small vessel disease. No obvious asymmetric infarct. Ther e are no ring enhancing lesions in the brain. No abnormal meningeal enhancement. There are no ring enhancing lesions in the brain and there is no abnormal meningeal enhancement, foca l or diffuse. IMPRESSION: There is moderate amount of symmetrical bilateral periventricular hypodensity consistent with chronic small vessel disease. No obvious acute infarct. If clinically indicated follow-up MRI with diffusi on imaging can be performed. No significant enhancing intracranial findings. RADIATION DOSE DELIVERED: Total DLP DATA REPOSITORY: All CT scans at this facility are submitted to the National Radiology Data Registry (NRDR) Dose Index Registry (DIR) with the [employer] (A[employer]). RADIATION OPTIMIZATION: All CT scans at this facility use at least one of these dose optimization te chniques: automated exposure control; mA and/or kV adjustment per patient size (includes targeted exa ms where dose is matched to clinical indication); or iterative reconstruction.
--- NOTE | 2023-06-27 14:28 | ED.GENADUL_ITS ---
Discharge Plan Disposition Patient Disposition: Home Discharge Details Clinical Impression: Weakness Primary Care Provider: Alireza Peres ED Provider: George Mcclendon Sheldahl Meds and New Rx's Prescriptions: Continued hydrochlorothiazide 25 mg tablet 25 mg PO DAILY pregabalin 50 mg capsule 50 mg PO BID lisinopril 20 mg tablet 20 mg PO DAILY cholecalciferol (vitamin D3) 25 mcg (1,000 unit) capsule 25 mcg PO DAILY gabapentin 300 mg capsule 300 mg PO BID PRN Algal [place]-3 DHA 200 mg capsule 200 mg PO DAILY Hold Instructions: Pt Stopped/Never Started Collagen Plus Vitamin C 125-740 mg capsule 1 cap PO QDAY sertraline 25 mg tablet 25 mg PO DAILY Patient Comments: TAKE ONE TABLET BY MOUTH EVERY DAY sertraline 50 mg tablet 50 mg PO DAILY Patient Comments: TAKE ONE TABLET BY MOUTH EVERY DAY START AFTER TAKING ONE WEEK OF 25MG DAILY Rx Instructions: TAKE ONE TABLET BY MOUTH EVERY DAY START AFTER TAKING ONE WEEK OF 25MG DAILY buspirone 5 mg tablet 5 mg PO BID Patient Comments: TAKE ONE TABLET BY MOUTH TWICE A DAY hydroxyzine HCl 10 mg tablet 10 mg PO QHS PRNQty: 14 0RF Rx Instructions: 1 to 2 tablets at night as needed for insomnia potassium chloride 10 mEq tablet extended release 10 meq PO DAILY Qty: 10 0RF Rx Instructions: Take daily while on hydrochlorothiazide. Your potassium and kidney function should be rechecked by your primary care provider at the next visit. Discharge Instructions Instructions: Weakness (ED) Additional Instructions: You are seen in the emergency department for your weakness and difficulty with fine motor controls. Your CAT scan showed no sign of a stroke. You advised to obtain MRI of your head. You elected to go home. Please return to the emergency department, as we discussed if you develop any weakness facial droop or headache. Please otherwise follow-up with your primary care provider later this week. Discharge Data Discharge Date/Time-TO BE ENTERED AT DEPARTURE: 06/27/23 18:46 HPI General Date/Time Provider Initiated Documentation: 06/27/23 13:35 . HPI Narrative: MDM This is an overall well-appearing normothermic and not tachycardic 72-year-old female with a history of colonic cancer status post remote treatment with 12 cycles of FOLFOX now with complaints of fine motor difficulties and a heaviness in her head for the past 3 days concerning for subacute CVA. No dizziness nor nystagmus so did not apply the hints exam as my suspicion was low for posterior circulation CVA. Patient certainly outside of the window for tPA and is neurologically intact so we will proceed with a dry CT head. If dry scan is unremarkable we will also complete a contrast study to assess for any metastatic disease intracranially. No chest pain to suggest ACS however based on age will obtain ECG. No fevers nor nuchal rigidity to suggest meningitis I do not feel that the patient requires a lumbar puncture. Not confused to suggest encephalitis. No tonic-clonic activity to suggest seizure so I do not feel that the patient requires an EEG. No weight loss nor fevers nor history of polymyalgia rheumatica to suggest temporal arteritis. Will assess basic electrolytes and obtain ECG. No neck pain to suggest cervical arterial dissection. No pain or proportion to suggest necrotizing soft tissue infection. Will also complete a single view chest x-ray though in the absence of chest pain my suspicion for dissection is low. 3:25 PM CBC lacks anemia thrombocytopenia and leukocytosis. 3:30 PM Reassured normal TSH. Negative troponin and given duration of time since symptoms began we will not pursue second troponin. Basic metabolic panel showing no JUVENAL and no acute electrolyte abnormalities. Reassuring normal magnesium. 3:53 PM Urinalysis showing trace blood. Microscopy pending. 4:06 PM Negative microscopy with no hematuria. 6:[address] head read as chronic small vessel disease. No obvious infarct. Reassuring negative chest x-ray. COVID-negative. 6:27 PM Met with the patient and she was feeling the same. She was not having any weakn ess. I advised her that given her negative CT head I was planning on hospitalizing her to obtain MRI. Patient want to go home. On reassessment the patient remains neurologically intact. Good 5 out of 5 wallcovering hanger strength. I advised her to return to the emergency department if she developed any focal weakness any headache difficulty speaking or slurring of words. She lives alone and I instructed her to call an ambulance if she had any concerns. Her discharge instructions were given to her with a friend present in the room. She understood her return indications and withdrew her consent for care. She was discharged with empiric trial of expectant outpatient management. 10:54 PM I have asked health aboriginal community council member Elke to have the patient seen in follow- up later this week by her primary care provider as she will likely benefit from an MRI. Chronic conditions affecting the care of the patient: Colonic cancer History obtained from an outside historian: N/A External record review: [facility] EMR Diagnostic interpretations performed by me: Per my independent interpretation chest x-ray shows: Per my independent interpretation EKG shows: Narrow complex normal sinus rhythm at a rate of 73. Left axis deviation no signs of LVH based on voltage criteria. Short IL interval at 110 ms. No obvious delta wave. QTc within normal limits. T wave flattening in leads aVL and V2. Compared to prior dated last month T wave flattening in aVL is new. T wave flattening in V2 similar. No acute injury pattern. Medications: N/A Social determinants of health affecting disposition: N/A Management discussed with: N/A Treatment/interventions considered: Hospitalization but deferred based on patient preference Response to therapies provided: N/A HPI This is a 72-year-old female with history of colonic cancer arrived to the emergency department in the setting of difficulty with fine motor skills that began 3 days ago. Patient reports that she had difficulty making a ponytail and crumpling up newspaper to light a fire. She has also felt generally weak. She did not notice difficulty with 1 side more than the other side. She has also had difficulty sleeping for the past approximately 1 month. She denies any headache nausea vomiting chest pain shortness of breath but does endorse a heaviness in her head. She has not been dizzy. She has not had any di fficulty moving. She denies anticoagulation and diabetes. She denies any fevers or neck stiffness. She did discontinue her sertraline several weeks ago. She denies routine tobacco, ethanol, and illicits. No recent falls nor balance issues. Exam General: Well-appearing in no acute distress speaking in complete sentences. Head: Normocephalic, atraumatic. Eye:[Pupils equal, round reactive to light.] Extraocular eye movements intact. No conjunctival injection. No scleral icterus. Ear, nose, mouth, throat: Grossly normal inspection. Normal voice, handling secretions normally. Neck: Trachea midline. Cardiovascular: Well-perfused distal extremities. Regular rate and rhythm. Respiratory: Nonlabored respiration. Clear lungs. Gastrointestinal: Nondistended abdomen. Soft nontender. Musculoskeletal: No significant lower extremity pitting edema. Moving all 4 extremities spontaneously. Skin: Normal for age and race, grossly normal temperature and turgor. No acute rash. Neurologic: Alert and appropriate, no apparent acute deficits. GCS 15. Cranial nerves II through XII intact grossly. No dysmetria. No dysdiadochokinesia. No pronator drift. No facial droop. 5 out of 5 bilateral upper and lower extremity strength. NIH stroke scale 0. Psychiatric: Mood and manner are appropriate. Grooming and personal hygiene are appropriate. Related Data Home Medications Medication Instructions Recorded Confirmed ascorbic acid 125 mg-collagen, 1 cap PO QDAY 03/07/23 06/27/23 hydrolyzed 740 mg capsule (Collagen Plus Vitamin C) cholecalciferol (vitamin D3) 25 25 mcg PO DAILY 03/07/23 06/27/23 mcg (1,000 unit) capsule docosahexaenoic acid 200 mg 200 mg PO DAILY 03/07/23 06/27/23 capsule (Algal [place]-3 DHA) gabapentin 300 mg capsule 300 mg PO BID PRN 03/07/23 06/27/23 hydrochlorothiazide 25 mg tablet 25 mg PO DAILY 03/07/23 06/27/23 lisinopril 20 mg tablet 20 mg PO DAILY 03/07/23 06/27/23 pregabalin 50 mg capsule 50 mg PO BID 03/07/23 06/27/23 buspirone 5 mg tablet 5 mg PO BID 05/21/23 06/27/23 hydroxyzine HCl 10 mg tablet 10 mg PO QHS PRN #14 tabs 05/21/23 06/27/23 potassium chloride 10 mEq 10 meq PO DAILY #10 tabs 05/21/23 06/27/23 tablet,extended release sertraline 25 mg tablet 25 mg PO DAILY 05/21/23 06/27/23 sertraline 50 mg tablet 50 mg PO DAILY 05/21/23 06/27/23 Previous Rx's Medication Instructions Recorded hydroxyzine HCl 10 mg tablet 10 mg PO QHS PRN #14 tabs 05/21/23 potassium chloride 10 mEq 10 meq PO DAILY #10 tabs 05/21/23 tablet,extended release Allergies Allergy/AdvReac Type Severity Reaction Status Date / Time Penicillins Allergy Intermediate Verified 06/27/23 14:35 General Stated Complaint: CVA/TIA NATALY: 3 PFSH All Active Problems (Updated 06/27/23 @ 18:32 by George Mcclendon MD) Weakness (Acute) Medical History (Updated 06/27/23 @ 18:32 by George Mcclendon MD) History of colon cancer Essential hypertension Vitamin D deficiency Hyperlipidemia History of degenerative joint disease Osteoarthritis Hip pain Low back pain Segmental and somatic dysfunction Peripheral neuropathy Pulmonary nodule Hx of colonic polyps Ceruminosis Venous insufficiency Anosmia Action tremor Dry skin Generalized anxiety disorder Bradykinesia Surgical History (Updated 05/21/23 @ 08:47 by Sally Toscano MD) S/P colon resection History of laparotomy Social History Smoking/Tobacco Use Status: Never Smoking risk assessment performed?: Yes Alcohol Intake: current Alcohol Intake frequency: holidays/special occasions only Alcohol type: wine Drug use: Occasionally Substance use type: marijuana Housing: house current occupation: retired What is your relationship status?: Panel score (0-1 are the most socially isolated patients): 0 Do you feel safe at home: Yes Do you feel safe in your relationship?: Yes Female Reproductive History Menstrual Menopause type: natural Course Vital Signs Vital signs: Vital Signs Temperature 37.1 C 06/27/23 13:27 Pulse 74 06/27/23 13:27 Respiratory Rate 16 06/27/23 13:27 Blood Pressure 149/95 H 06/27/23 13:27 Pulse Oximetry 97 06/27/23 13:27 Temperature 37.1 C 06/27/23 13:27 Temperature Source Temporal Artery Scan 06/27/23 13:27 Pulse 74 06/27/23 13:27 Respiratory Rate 16 06/27/23 13:27 Respiratory Effort Normal 06/27/23 14:25 Respiratory Depth Normal 06/27/23 14:25 Blood Pressure 149/95 H 06/27/23 13:27 Blood Pressure Position Sitting 06/27/23 13:27 Pulse Oximetry 97 06/27/23 13:27 Oxygen Delivery Method Room Air 06/27/23 13:27 Oxygen Flow Rate 0 06/27/23 13:27
--- NOTE | 2023-06-27 14:30 | DI.RAD_ITS ---
Exam(s) XR CHEST 1V IN DI DEPT EXAM: XR CHEST 1V IN DI DEPT CLINICAL HISTORY: Generalized weakness. TECHNIQUE: 2D digital imaging was performed. COMPARISON: No exams were available for comparison FINDINGS: Single AP portable view. Heart size is upper normal. The mediastinum is not widened. Lungs are clear. No infiltrates nor obvious pleural effusions. IMPRESSION: No acute pulmonary findings on this single AP portable view of the chest. DATA REPOSITORY: RADIATION DOSE DELIVERED:
--- NOTE | 2023-06-27 14:45 | RT.EKG_ITS ---
APPROVED REPORT Exam: Resting ECG Reason for Exam: Weakness Patient Location: E HR:73 bpm ECG Measurements Heart Rate 73 AXIS CO 110 P 70 QRSd 74 QRS 20 QT 402 T 62 QTc 442 Conclusion Sinus rhythm...normal P axis, V-rate 60- 99 Narrow complex normal sinus rhythm at a rate of 73. Left axis deviation no signs of LVH based on vol tage criteria. Short CO interval at 110 ms. No obvious delta wave. QTc within normal limits. T wa ve flattening in leads aVL and V2. Compared to prior dated last month T wave flattening in aVL is ne w. T wave flattening in V2 similar. No acute injury pattern.
[2023-06-27 15:02] LABS: Abs Immature Grans 0.01 10^3/uL (0.0-0.06); Absolute Basophil Count 0.06 10^3/uL (0.0-0.2); Absolute Eosinophil Count 0.08 10^3/uL (0.0-0.7); Absolute Lymphocyte Count 2.47 10^3/uL (1.2-3.4); Absolute Neutrophil Count 4.49 10^3/uL (1.2-6.7); Basophils % 0.8; HCT 44.4 % (36.0-46.0); HGB 14.7 g/dL (11.2-15.7); Immature Grans % 0.1; MCH 30.8 pg (27.0-33.0); MCHC 33.1 % (32.0-36.0); MCV 93 fL (80-95); MPV 11.2 fL (8.0-11.0); Monocytes % 7.8; Neutrophils % 58.3; Platelet Count 261 10^3/uL (130-400); RBC 4.77 10^6/uL (3.93-5.22); RDW 13.4 % (11.7-14.6); RDW-SD 45.9 fL; WBC 7.71 10^3/uL (4.4-10.8)
[2023-06-27 15:27] LABS: Anion Gap 10.5 mmol/L (3-11); BUN 11 mg/dL (7-18); CO2 26.5 mmol/L (21.0-32.0); CREATININE 0.8 mg/dL (0.55-1.02); Chloride 103 mmol/L (98-107); Estimated GFR 78.24 (mL/min/1.73m2); Glucose 100 mg/dL (74-106); Magnesium 2.2 mg/dL (1.8-2.4); Potassium 3.5 mmol/L (3.5-5.1); Sodium 140 mmol/L (136-145); TSH (W/Ref FT4) 1.48 uIU/mL (0.36-3.74); Troponin I < 50 ng/L (<or=60)
[2023-06-27 15:52] LABS: Bilirubin Negative (Negative); Blood Trace-intact (Negative); Clarity Clear (Clear); Glucose Negative (Negative); Ketones Negative (Negative); Leukocyte Esterase Negative (Negative); Nitrite Negative (Negative); Urobilinogen 0.2 mg/dL (Up to 0.2)
[2023-06-27 16:00] LABS: Bacteria Negative HPF (Negative); C & S Indicated? No; Casts Negative LPF (Negative); Crystals Negative HPF (Negative); Epithelial Cells Rare HPF (Negative); Mucus Trace (Negative); RBC 0-2 HPF (0-2); WBC Negative HPF (0-5)
[2023-06-27 16:06] LABS: Source Nasal/Nares
[2023-06-27 16:40] LABS: COVID-19 PCR Negative (Negative)
[2023-06-27] MEDS: Omnipaque 350 MG/ML 100 ML BTL IJ (17:16)
--- NOTE | 2023-06-27 22:55 | NUR.NOTE ---
Pt placed on care management referral list to see primary care for weakness, possible MRI for hands. Per ED Dr Mcclendon to be seen within 1 week.
== END 2023-06-27 18:46 | disposition home or self-care (01) ==
PROVIDERS: Emergency Provider Emergency Medicine; PCP Internal Medicine
DX: R53.1 Weakness (principal); R94.31 Abnormal electrocardiogram [ECG] [EKG]; I10 Essential (primary) hypertension; E78.5 Hyperlipidemia, unspecified; Z11.52 Encounter for screening for COVID-19
CPT/HCPCS: 36415; 80048; 87635; 93005; 99285; 70470; 71046; 81003; 81015; 83735; 84443; 84484; 85025; 93010; 99284; J3490

== ENCOUNTER → 2023-07-18 02:33 | Outpatient (CLI) | payer MEDICARE, SELFPAY ==
--- NOTE | 2023-07-18 13:30 | DI.MRI_ITS ---
Exam(s) MR BRAIN WO EXAM: MR BRAIN WO CLINICAL HISTORY: ABNL INVOLUNTARY MOVEMENTS R25.8 TECHNIQUE: Multiplanar multisequence MRI of the brain was performed. COMPARISON: CT CT HEAD WO/W from 06/27/2023 FINDINGS: VENTRICLES AND EXTRA AXIAL SPACES: Normal in size and morphology for the patient's age. MIDLINE SHIFT: None. CEREBRAL PARENCHYMA: No focus of restricted diffusion to suggest acute infarct. No space-occupying le obie identified. There are multiple areas of hyperintense signal seen in the white matter most consis tent with chronic microvascular ischemic disease. There is an old lacunar infarct in the left basal ganglia. HEMORRHAGE: None. BRAINSTEM/CEREBELLUM: Normal. CALVARIUM: Normal. VISUALIZED PARANASAL SINUSES/MASTOIDS:Clear. FLANDREAU OF GLEASON: Normal flow void. PITUITARY GLAND: Unremarkable. OTHER FINDINGS: None. IMPRESSION: 1. Age-appropriate cerebral atrophy and chronic microvascular ischemic disease. 2. No evidence of an acute infarct. DATA REPOSITORY:
== END ==
PROVIDERS: PCP Internal Medicine; Visit Provider Family Medicine
DX: R25.8 Other abnormal involuntary movements (principal)
CPT/HCPCS: 70551

== ENCOUNTER → 2023-07-20 09:20 | Outpatient (BNVA) | payer MEDICARE, SELFPAY | PROVIDERS: PCP Internal Medicine; Referring Provider Internal Medicine; Visit Provider Psychiatry & Neurology Neurology | DX: G20.A1 Parkinson's disease without dyskinesia, without mention of fluctuations (principal); G47.00 Insomnia, unspecified; K59.00 Constipation, unspecified; R13.10 Dysphagia, unspecified; I49.9 Cardiac arrhythmia, unspecified | CPT/HCPCS: 99215; G2212 ==

== ENCOUNTER → 2023-08-05 00:33 | Outpatient (CLI) | payer MEDICARE, SELFPAY ==
--- NOTE | 2023-08-05 | DI.CT_ITS ---
Exam(s) CT CHEST/ABD/PEL W EXAM: CT CHEST/ABD/PEL W CLINICAL HISTORY: WEIGHT LOSS R63.4. TECHNIQUE: Imaging Protocol: Axial computed tomography images with coronal and sagittal reformatted images were created and reviewed CONTRAST MATERIAL: Intravenous: Omnipaque 350 Contrast volume:100 ml Oral: yes / COMPARISON: CT CT CHEST/ABD/PEL W from 06/24/2022 FINDINGS: CHEST: Tracheobronchial tree: Patent where visualized. Pulmonary parenchyma: No consolidation or dominant measurable mass. Pleura: No effusion or pneumothorax. Lymph nodes: Within normal limits. Aorta: Thoracic portion non-dilated. Heart: Mildly dilated. No pericardial effusion. Bones: Unremarkable prominent endplate osteophytes. No lytic lesions.No compression fractures. Stabl e sclerotic lesion in the superior endplate T3, likely bone island. Soft tissues: Unremarkable. ABDOMEN and PELVIS: Liver: Normal density. No measurable mass. Gallbladder and biliary tract: No evidence of stones or wall thickening. No biliary dilatation. Pancreas: Normal density, no abnormal calcifications or inflammatory process. Spleen: Normal. Kidneys: Normal size, contour and axis. No radiodense stones. No obstructive uropathy. No suspicious masses seen. Adrenal glands: No masses seen. Aorta: Abdominal portion non-dilated. Atherosclerotic changes. Lymph nodes: Within normal limits. Soft tissues: Unremarkable. Bladder: Partially obscured by artifact from hip prostheses. Bowel: Partial colectomy. Moderate to increased quantity of stool. No obstruction or bowel wall thick ening. Peritoneal cavity: No ascites. No focal collection. No mesenteric inflammatory response. Bones: No change in the spine. No suspicious lesions. Bilateral hip prostheses. Reproductive organs: Partially obscured. IMPRESSION: No evidence metastatic disease or acute abnormality in the chest, abdomen or pelvis.. RADIATION DOSE DELIVERED: 1,131.48mGy.cm Total DLP DATA REPOSITORY: All CT scans at this facility are submitted to the National Radiology Data Registry (NRDR) Dose Index Registry (DIR) with the [employer] (ACR). RADIATION OPTIMIZATION: All CT scans at this facility use at least one of these dose optimization te chniques: automated exposure control; mA and/or kV adjustment per patient size (includes targeted exa ms where dose is matched to clinical indication); or iterative reconstruction.
[2023-08-05] MEDS: Barium Sulfate 2% W/V-Creamy Vanilla Smoothie 450 ML BTL 900 ML PO (09:04)
[2023-08-05] MEDS: Normal Saline - Diluent 50 ML VIAL IJ (11:09)
[2023-08-05] MEDS: Omnipaque 350 MG/ML 500 ML BTL-Imaging package IJ (11:09)
== END ==
PROVIDERS: PCP Internal Medicine; Visit Provider Family Medicine
DX: R63.4 Abnormal weight loss (principal)
CPT/HCPCS: 74177; 71260

== ENCOUNTER 2023-08-05 02:03 | Outpatient (CLI) | payer MEDICARE, SELFPAY ==
[2023-08-05 09:37] LABS: Abs Immature Grans 0.02 10^3/uL (0.0-0.06); Absolute Basophil Count 0.04 10^3/uL (0.0-0.2); Absolute Eosinophil Count 0.04 10^3/uL (0.0-0.7); Absolute Lymphocyte Count 1.99 10^3/uL (1.2-3.4); Absolute Monocyte Count 0.49 10^3/uL (0.1-0.8); Basophils % 0.6; Eosinophils % 0.6; HCT 40.9 % (36.0-46.0); HGB 13.6 g/dL (11.2-15.7); Immature Grans % 0.3; Lymphocytes % 30.2; MCH 31.3 pg (27.0-33.0); MCHC 33.3 % (32.0-36.0); MCV 94 fL (80-95); MPV 11.2 fL (8.0-11.0); Monocytes % 7.4; Neutrophils % 60.9; Platelet Count 171 10^3/uL (130-400); RBC 4.34 10^6/uL (3.93-5.22); RDW-SD 45.1 fL; WBC 6.58 10^3/uL (4.4-10.8)
[2023-08-05 09:52] LABS: ALT 31 U/L (14-59); AST 23 U/L (15-37); Albumin 3.7 g/dL (3.4-5.0); Alkaline Phosphatase 70 U/L (46-116); Anion Gap 7.9 mmol/L (3-11); BUN 19 mg/dL (7-18); Bilirubin, Total 0.5 mg/dL (0.2-1.0); CO2 29.1 mmol/L (21.0-32.0); CREATININE 0.9 mg/dL (0.55-1.02); Calcium 9.7 mg/dL (8.5-10.1); Chloride 108 mmol/L (98-107); Glucose 104 mg/dL (74-106); Potassium 4.6 mmol/L (3.5-5.1); Sodium 145 mmol/L (136-145); Total Protein 6.9 g/dL (6.4-8.2)
== END 2023-08-05 02:04 | disposition home or self-care (01) ==
LOC: LBO 02:03
PROVIDERS: PCP Internal Medicine; Visit Provider Nurse Practitioner Family
DX: C18.2 Malignant neoplasm of ascending colon (principal)
CPT/HCPCS: 74177; 80053; 71260; 82378; 85025

== ENCOUNTER → 2023-09-21 13:38 | Outpatient (BNVA) | payer MEDICARE, SELFPAY | PROVIDERS: PCP Family Medicine; Referring Provider Internal Medicine; Visit Provider Psychiatry & Neurology Neurology | DX: G20.A1 Parkinson's disease without dyskinesia, without mention of fluctuations (principal); G47.00 Insomnia, unspecified; K59.00 Constipation, unspecified; R13.10 Dysphagia, unspecified | CPT/HCPCS: 99214 ==

== ENCOUNTER → 2024-01-25 12:22 | Outpatient (BNVA) | payer MEDICARE, SELFPAY | PROVIDERS: PCP Family Medicine; Referring Provider Family Medicine; Visit Provider Psychiatry & Neurology Neurology | DX: G20.A1 Parkinson's disease without dyskinesia, without mention of fluctuations (principal); G47.00 Insomnia, unspecified; K59.00 Constipation, unspecified; R13.10 Dysphagia, unspecified | CPT/HCPCS: 99215 ==

== ENCOUNTER 2024-02-03 16:31 | Outpatient (REF) | payer MEDICARE, SELFPAY ==
[2024-02-03 16:01] LABS: Iron 81 ug/dL (50-170); Total Iron Binding Capacity 261 ug/dL (250-450); Transferrin Sat 31 % (15-50)
[2024-02-03 16:25] LABS: Ferritin 85 ng/mL (8-252); Vitamin B12 573 pg/mL (193-986)
== END 2024-02-03 16:32 | disposition home or self-care (01) ==
LOC: NCHCN 16:31
PROVIDERS: PCP Family Medicine; Visit Provider Family Medicine
DX: R53.83 Other fatigue (principal); C18.2 Malignant neoplasm of ascending colon; Z79.899 Other long term (current) drug therapy
CPT/HCPCS: 82607; 82728; 83540; 83550

== ENCOUNTER 2024-08-03 14:17 | Outpatient (REF) | payer MEDICARE, SELFPAY ==
--- OUTSIDE RECORDS SUMMARY | 2024-08-03 14:21 | XMS_ITS | Encounter Summary ---
Author Organization [facility] Address [facility] [place] [address] Care Team Providers Care Mica Machine Operator Name Role Phone Alireza Peres MD Primary Care Provider [phone] Encounter Details Date Type Department Care Team (Late st Contact Info) Description 08/28/2021 1:30 PM EST Office Visit Hematology/Oncology at [address] [phone] Malcom Ding MD [facility] [place] [address] Maria M Neff, SUPERVISOR [employer] [address] [place] [address] [place] [address] Malignant neoplasm of ascending colon Social History Tobacco Use Types Packs/Day Years Used Date Smoking Tobacco: Never Smokeless Tobacco: Never Comments:smokes marijuana Sex and Gender Information Value Date Recorded Sex Assigned at Not on file Gender Identity Not on file Sexual Orientation Not on file documented as of this encounter Last Filed Vital Signs Vital Sign Reading Time Taken Comments Blood Pressure 145/73 08/28/2021 1:36 PM EST Pulse 65 08/28/2021 1:36 PM EST Temperature 36.2 ??C (97.2 ??F) 08/28/2021 1:36 PM ES T Respiratory Rate 20 08/28/2021 1:36 PM EST Oxygen Saturation 100% 08/28/2021 1:36 PM EST Inhaled Oxygen Concentration - - Weight 61.7 kg (136 lb) 08/28/2021 1:36 PM EST Height 152.8 cm (5' 0.16) 08/28/2021 1:36 PM ES T Body Mass Index 26.42 08/28/2021 1:36 PM EST documented in this encounter Progress Notes * Maria M Neff, SUPERVISOR [employer] - 08/28/2021 1:30 PM EST Subjective Patient ID: Anita Santiago is a 71 y.o. female. There is no problem list on file for this patient. HPI Patient ID: Anita Santiago is a 70 y.o. female. Problem List: 1. Colon cancer, pT3a, pN2a Received care in [place]. Medical Oncologist - Anjel Mirza at [facility] [address] [place] [address] [place] [address] ; A. Presented with iron deficiency anemia 02/11/18 Ascending colon - invasive adenocarcinoma 02/14/18 CT c/a/p - diffuse thickening of the ascending colon up to 1.5 cm, spanning 6 cm with at least 5 adjacent LNs in the mesentery and pelvis. 02/22/18 Pre-op CEA - 26.7 ?? B. 03/17/18 - Ascending colectomy. Path - adenocarcinoma, grade 2, tumor invades muscularis propria into pericolic tissue but not invading the visceral peritoneum. 11/01 LNs involved. PT3a, N2a. MSI low C. Post-operative chemotherapy - Folfox x 12 cycles, last given in 11/2018. ?? D. Most recent colonoscopy fall of 2018 - negative. F/u recommended in 2 years. A referral was madeto Dr. Jane and she is going to be seen end of April 2021. ?? CEA in 09/2020 - <5 [address] c/a/p 05/12/21 - Impression: 1. No metastatic appearing disease in the chest 2. Partial right hemicolectomy. No evidence of bowel obstruction or free air nor abscess 3. No abnormal appearing mesenteric masses nor adenopathy. No ascites 4. Few sclerotic bone lesions what have appearance of benign bone islands more so than metastatic disease. No lytic osseous lesions identified. There are bilateral hip prostheses. ?? 2. HTN 3. Osteoarthritis S/p right bilateral SILVIA 4. 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 (See history as summarized above.) She was treated with surgery (ascending colectomy) and 12 cycles of Folfox. Anita returns to the [facility] oncology clinic in [facility] today for routine follow-up. Anita is feeling well. She had a colonoscopy 07/08/21 at [facility] and had transverse colon polyps removed classified as fragments of sessile serrated polyp/adneoma. Sigmoid polyp was colonic mucosa with features of mucosal prolapse. She is wondering if she should repeat the colonoscopy in 2years instead of the recommended 3 years. We discussed she has some time to think about this. She feels good. Her energy is good. Her appetite is good. She is eating better with less sugar and less bread and has been overall less constipated. She is trying to restrict sugar intake. She has regular bowel movements daily. She denies abdominal pain or cramping. No blood in stool noticed. Anita has been active playing her exozette and mandolin with friends and neighbors.. She reports the only residual neuropathy from the chemotherapy is present on her lips. She still take gabapentin before playing the flute and this seems to help. She does not have neuropathy on her fingers or feet. She denies fever, chills, or night sweats. No new lumps or bumps. She denies shortness of breath, new cough or chest pain. She will be going to [facility] in 06/01, so would like to come for visit and have restaging CT in 07/01. Other ROS are negative. Allergies Allergen Reactions ??? Penicillins Nausea And Vomiting Current Medications ??? fish oil-omega-3 fatty acids 1,000 mg Capsule ??? cholecalciferol, Vitamin D3, 50 mcg (2,000 unit) Capsule ??? lisinopriL (Zestril) 10 mg Tablet ??? gabapentin (Neurontin) 300 mg Capsule Review of Systems Constitutional: Negative. HENT: Negative. Respiratory: Negative. Cardiovascular: Negative. Gastrointestinal: Negative. Musculoskeletal: Negative. Neurological: Positive for numbness. Lips Hematological: Negative. Psychiatric/Behavioral: Negative. Objective Physical Exam Vitals reviewed. Constitutional: General: She is not in acute distress. Appearance: Normal appearance. She is not ill-appearing. Eyes: Extraocular Movements: Extraocular movements intact. Cardiovascular: Rate and Rhythm: Normal rate and regular rhythm. Pulmonary: Breath sounds: Normal breath sounds. No wheezing or rales. Abdominal: General: Bowel sounds are normal. There is no distension. Palpations: Abdomen is soft. Tenderness: There is no abdominal tenderness. Musculoskeletal: Right lower leg: No edema. Left lower leg: No edema. Skin: General: Skin is warm and dry. Neurological: Mental Status: She is oriented to person, place, and time. Coordination: Coordination normal. Psychiatric: Mood and Affect: Mood normal. Thought Content: Thought content normal. BP 145/73 (Patient Position: Sitting) Pulse 65 Temp 36.2 ??C (97.2 ??F) (Temporal) Resp 20 Ht 152.8 cm (5' 0.16) Wt 61.7 kg (136 lb) SpO2 100% BMI 26.42 kg/m?? LABS 08/11/21 WBC 6.00; ANC 3.27; H/H 12.7/39.1; PLT 169; BUN 24; CREAT 0.9; BILI 0.4; LFTs normal. CEA 08/28/21 - 2.2 05/12/21 - 2.5 Assessment & Plan Anita Santiago is a 71 yo female diagnosed 03/28 with adenocarcinoma of the ascending colon. (See history as summarized above.) She was treated with surgery (ascending colectomy) and 12 cycles of Folfox. Anita returns to the [facility] oncology clinic in [facility] today for routine follow-up. CBC, CMP reviewed with Anita. CEA pending at time of this visit. Anita is doing well and has no clinical signs of cancer recurrence. F/U in 07/[address] C/A/P and clinic visit. documented in this encounter Plan of Treatment Not on file documented as of this encounter Visit Diagnoses Diagnosis Malignant neoplasm of ascending colon documented in this encounter Care Teams Mica Machine Operator Relationship Specialty Start Date End Date Alireza Peres MD [address] [place] [address] PCP - General Internal Medicine 01/27/21 10/04/23 documented as of this encounter
--- OUTSIDE RECORDS SUMMARY | 2024-08-03 14:21 | XMS_ITS | Encounter Summary ---
[place] [address] Care Team Providers Care Almond Cutting Machine Tender Name Role Phone Komal Zaidi MD Primary Care Provider [phone] Encounter Details Date Type Department Care Team (Latest Contact Info) Description 10/05/2023 Travel Social History Tobacco Use Types Packs/Day Years Used Date Smoking Tobacco: Never Smokeless Tobacco: Never Comments:smokes marijuana Sex and Gender Information Value Date Recorded Sex Assigned at Not on file Gender Identity Not on file Sexual Orientation Not on file documented as of this encounter Plan of Treatment Not on file documented as of this encounter Visit Diagnoses Not on filedocumented in this encounter Care Teams Almond Cutting Machine Tender Relationship Specialty Start Date End Date Komal Zaidi MD [address] [place] [address] PCP - General Family Medicine 10/05/23 documented as of this encounter
--- OUTSIDE RECORDS SUMMARY | 2024-08-03 14:21 | XMS_ITS | Encounter Summary ---
[place] [address] Care Team Providers Care Bearing Grinder Name Role Phone Alireza Peres MD Primary Care Provider [phone] Reason for Referral * Consultation (Routine) - Closed Specialty Diagnoses / Procedures Referred By Danielito garcia Referred To Contact Neurology Diagnoses Bradykinesia RECENT DX OF Komal Pinedo MD [address] [place] [address] [facility] Neurology [address] [place] [phone] Referral ID Status Reason Start Date Expiration Date V isits Requested Visits Authorized [id number] Closed Second Opinion PCP Updated and/or Approved 07/28/2023 07/27/2024 6 6 Encounter Details Date Type Department Care Team (Late st Contact Info) Description 07/28/[address] [facility] Incoming Referrals [phone] Komal Zaidi MD [address] [place], [place] [id number] Bradykinesia Social History Tobacco Use Types Packs/Day Years Used Date Smoking Tobacco: Never Smokeless Tobacco: Never Comments:smokes marijuana Sex and Gender Information Value Date Recorded Sex Assigned at Not on file Gender Identity Not on file Sexual Orientation Not on file documented as of this encounter Plan of Treatment Scheduled Referrals Name Type Priority Associated Diagnoses Orde r Schedule Referral to Neurology Outpatient Referral Routine Bradykinesia Ordered: 07/28/2023 documented as of this encounter Visit Diagnoses Diagnosis Bradykinesia Abnormal involuntary movements documented in this encounter Care Teams Bearing Grinder Relationship Specialty Start Date End Date Alireza Peres MD [address] [place] [address] PCP - General Internal Medicine 01/27/21 10/04/23 documented as of this encounter
--- OUTSIDE RECORDS SUMMARY | 2024-08-03 14:21 | XMS_ITS | Encounter Summary ---
Author Organization [facility] [place] [address] Care Team Providers Care Family Independence Case Manager Name Role Phone Komal Zaidi MD Primary Care Provider [phone] Reason for Visit * Reason Onset Date Comments Results 02/24/2024 Appointment 02/24/2024 Encounter Details Date Type Department Care Team (Late st Contact Info) Description 02/24/2024 Telephone Neurology at [address] [phone] Bradley Bush MD [facility] [place] [address] Results; Appointment Social History Tobacco Use Types Packs/Day Years Used Date Smoking Tobacco: Never Smokeless Tobacco: Never Comments:smokes marijuana Sex and Gender Information Value Date Recorded Sex Assigned at Not on file Gender Identity Not on file Sexual Orientation Not on file documented as of this encounter Miscellaneous Notes * Telephone Encounter - Queen Conchis Valencia RN - 03/22/2024 10:49 AM EDT Called Cecelia Rascon's office and spoke with receptionist clerk Maricarmen who confirmed Neurology clinic fax number as [phone] Syn One biopsy results faxed to Dr. Cecelia Rascon's office to fax number [phone] * Telephone Encounter - Moises Tinoco - 03/21/2024 12:02 PM EDT Anita Jack, patient, stated she would like her skin biopsy results from 12/12/2023 sent to her neurologist Dr Cecelia Rascon at the neurology clinic [facility]. Anita stated she is declining an appointment as she already has a neurologist closer to home. Anita stated she can be reached at [phone] if there are questions. * Telephone Encounter - Tania Aguillon - 03/20/2024 9:45 AM EDT Please follow scheduling instructions below Schedule in person visit next available. Appt Notes: deejay drew salazar pt Visit Type: RE-ESTABLISH Provider: bradley bush Additional Info Needed: * Telephone Encounter - Crystal Rodriguez - 03/09/2024 11:05 AM EDT Patient following up on test results. Please advise. * Telephone Encounter - Jessica Addison - 02/27/2024 8:56 AM EDT Syn-One biopsy results received. Secure chat to Dr. Lucio to advise on scheduling for results. * Telephone Encounter - Queen Conchis Valencia RN - 02/24/2024 12:46 PM EDT Copied from CRM #[id number]. Topic: Specialty Dept CRMs - Test Results >> Feb 24, 2024 11:55 AM Alisha Wheeler wrote: Test Results Request Specialist: Cathy Salazar Relationship (if other than patient-full name): Self Ordering Provider: Cathy Salazar Type of Test: Skin Biopsy Date of Test: 12/12/23 Where Was This Test Performed: [facility] documented in this encounter Plan of Treatment Not on file documented as of this encounter Visit Diagnoses Not on filedocumented in this encounter Care Teams Family Independence Case Manager Relationship Specialty Start Date End Date Komal Zaidi MD [address] [place] [address] PCP - General Family Medicine 10/05/23 documented as of this encounter
--- OUTSIDE RECORDS SUMMARY | 2024-08-03 14:21 | XMS_ITS | Encounter Summary ---
Author Organization [facility] Address [address] [place] [address] Care Team Providers Care Principal Systems Architect Name Role Phone Unavailable Primary Care Provider Unavailabl e Encounter Details Date Type Department Care Team (Late st Contact Info) Description 06/24/2022 Lab Requisition [facility] Pathology & Laboratory Medicine - [facility] [address] [place] [address] Outr Resulting Lab, Provider Social History Tobacco Use Types Packs/Day Years Used Date Smoking Tobacco: Never Assessed Comments Unknown Sex and Gender Information Value Date Recorded Sex Assigned at Not on file Legal Sex Female 12:48 EDT Gender Identity Not on file Sexual Orientation Not on file documented as of this encounter Plan of Treatment Not on file documented as of this encounter Procedures Procedure Name Priority Date/Time Associated Diagnosis Comments CEA Routine 06/24/2022 8:25 EST documented in this encounter Results * CEA (06/24/2022 8:25 EST) CEA 2.6 See Note ng/mL 06/24/2022 19:42 EST [facility] Comment: % Distribution of CEA (ng/mL): ??0.0 - 2.5 in 98.2% of Nonsmokers and 87.3% of Smokers ??2.6 - 5 in 1.8% of Nonsmokers and 8% of Smokers ??5.1 - 10.1 in 4.7% of Smokers NOTE: Serum CEA concentration should not be interpeted as absolute evidence for the presence or absence of malignant disease. ?? Assayed on Siemens ADVIA Centaur XPT using chemiluminescent technology. ??Values obtained by different assay methods cannot be used interchangeably. Blood VENOUS BLOOD / Unknown 06/24/2022 8:25 EST 06/24/2022 17:54 EST us Provider Outr Resulting Lab CHEMISTRY & BLOOD GA S ORDERABLES Final Result [facility] [address] [place] [address] documented in this encounter Visit Diagnoses Not on filedocumented in this encounter
--- OUTSIDE RECORDS SUMMARY | 2024-08-03 14:21 | XMS_ITS | Encounter Summary ---
[place] [address] Care Team Providers Care Monotypist Name Role Phone Alireza Peres MD Primary Care Provider [phone] Encounter Details Date Type Department Care Team (Latest Contact Info) Description 01/12/2023 Travel Social History Tobacco Use Types Packs/Day [...] on filedocumented in this encounter Care Teams Monotypist Relationship Specialty Start Date End Date Alireza Peres MD [address] [place] [address] PCP - General Internal Medicine 01/27/21 10/04/23 documented as of this encounter
--- OUTSIDE RECORDS SUMMARY | 2024-08-03 14:21 | XMS_ITS | Encounter Summary ---
Author Organization [facility] Address [facility] [place] [address] Care Team Providers Care Home Care Scheduler Name Role Phone Alireza ePres MD Primary Care Provider Encounter Details Date Type Department Care Team (Late st Contact Info) Description 04/19/2022 Telephone Hematology/Oncology at [address] [phone] Malcom Ding MD [facility] [place] [address] Social History Tobacco Use Types Packs/Day Years [...] colon documented in this encounter Care Teams Home Care Scheduler Relationship Specialty Start Date End Date Alireza Peres MD [address] [place] [address] PCP - General Internal Medicine 01/27/21 10/04/23 documented as of this encounter
--- OUTSIDE RECORDS SUMMARY | 2024-08-03 14:21 | XMS_ITS | Encounter Summary ---
Author Organization [facility] [place] [address] Care Team Providers Care Plastics Technician Name Role Phone Komal Zaidi MD Primary Care Provider Reason for Visit * Consultation (Routine) - Closed Specialty Diagnoses / Procedures Referred By Danielito garcia Referred To Contact Neurology Diagnoses Bradykinesia RECENT DX OF Komal Pinedo MD [address] [place] [address] [facility] Neurology [address] [place] [phone] Referral ID Status Reason Start Date Expiration Date V isits Requested Visits Authorized [id number] Closed Second Opinion PCP Updated and/or Approved 07/28/2023 07/27/2024 6 6 Encounter Details Date Type Department Care Team (Late st Contact Info) Description 10/05/2023 10:00 AM EDT Office Visit Neurology at [address] [phone] Subha Lucio MD [facility] [place] [address] Bradykinesia Social History Tobacco Use Types Packs/Day Years Used Date Smoking Tobacco: Never Smokeless Tobacco: Never Comments:smokes marijuana Sex and Gender Information Value Date Recorded Sex Assigned at Not on file Gender Identity Not on file Sexual Orientation Not on file documented as of this encounter Last Filed Vital Signs Vital Sign Reading Time Taken Comments Blood Pressure 142/71 10/05/2023 9:45 AM EDT Pulse 61 10/05/2023 9:45 AM EDT Temperature - - Respiratory Rate - - Oxygen Saturation - - Inhaled Oxygen Concentration - - Weight - - Height - - Body Mass Index - - documented in this encounter Progress Notes * Subha Lucio MD - 10/05/2023 10:00 AM EDT [facility] Movement Disorders New Patient Evaluation Date of service 10/05/2023 Referring provider Komal Zaidi MD [address] [place] [address] Cc: PD second opinion History of present illness Anita Santiago is a 73 y.o. left handed woman who presents to the movement disorders clinic for evaluation of PD. She is here with her brother Rafa. History of hodgkins 1970s and colon cancer 2018. She had chemo for both. No other cancers. She has been seen by Dr. Zaman with impression of possible PD. She developed a jaw tremor while playing the flute. This past April she had onset of anxiety and was prescribed sertraline. She had SE from the sertraline and had to go off of it. She was having worsening dexterity and difficulty making a pony tail etc as of Jun 2023. PD was starting to be suspected at that time. No hand tremors. She then saw Dr. Zaman who also though t this could be PD. A Kenna was ordered but not completed because she wanted to hold off. Once the SE from the sertraline subsided she was dealing with insmnia and started on mirtazapine which has helped a little with sleep and mood and appetite. Prior to this she was tried on both trazodone and ambien. She endorses long time hyposmia. Long time constipation. She is unsure about active sleep. She was an social studies teacher. She has had to stop playing the flute. No toxic exposures. She walks her dog a few times a day. She did PT in [facility] ([facility] [email or web address] She plans to goto the gym twice a week. No family history of PD. Current Outpatient Medications: docusate sodium (Colace) 100 mg capsule, Take 100 mg by mouth daily as needed for Constipation., Disp: , Rfl: mirtazapine (Remeron) 7.5 mg tablet, TAKE ONE TABLET BY MOUTH EVERY DAY IN THE EVENING, Disp: , Rfl: Ascorbic Acid-Collagen 125-740 mg Capsule, Take 1 capsule by mouth daily., Disp: , Rfl: fish oil-omega-3 fatty acids (Fish Oil) 1,000 mg capsule, Take 2 g by mouth daily., Disp: , Rfl: cholecalciferol, Vitamin D3, 50 mcg (2,000 unit) Capsule, Take 2,000 capsules by mouth daily., Disp: , Rfl: lisinopriL (Zestril) 10 mg Tablet, Take 20 mg by mouth daily., Disp: , Rfl: Review of Systems - All others negative except as per HPI Physical Exam Patient Vitals for the past 24 hrs: Pulse BP 10/05/23 0945 61 142/71 Additional movement disorder specific findings: Movement Disorder Society - Unified Parkinson's Disease Rating Scale Part lll: Motor Examination Speech: 1 - Slight: Loss of modulation, diction or volume, but still all words easy to understand. Facial Expression: 2 - Mild: In addition to decreased eye-blink frequency, Masked facies present inthe lower face as well, namely fewer movements around the mouth, such as less spontaneous smiling, but lips not parted. Rigidity - Neck: 0 - Normal: No rigidity. Rigidity - RUE: 2 - Mild: Rigidity detected without the activation maneuver, but full range of motion is easily achieved. Rigidity - LUE: 2 - Mild: Rigidity detected without the activation maneuver, but full range of motion is easily achieved. Rigidity - RLE: 0 - Normal: No rigidity. Rigidity - LLE: 0 - Normal: No rigidity. Finger tapping -Right hand: 1 - Slight: Any of the following: a) the regular rhythm is broken with one or two interruptions or hesitations of the tapping movement b) slight slowing c) the amplitude decrements near the end of the 10 taps. Finger tapping -Left hand: 1 - Slight: Any of the following: a) the regular rhythm is broken with one or two interruptions or hesitations of the tapping movement b) slight slowing c) the amplitude decrements near the end of the 10 taps. Hand movements - Right hand: 2 - Mild: Any of the following: a) 3 to 5 interruptions during the movements b) mild slowing c) c) the amplitude decrements midway in the task. Hand movements - Left hand: 2 - Mild: Any of the following: a) 3 to 5 interruptions during the movements b) mild slowing c) c) the amplitude decrements midway in the task. Pronation-supination movements- Right hand: 1 - Slight: Any of the following: a) the regular rhythmis broken with one or two interruptions or hesitations of the movement b) slight slowing c) he amplitude decrements near the end of the sequence. Pronation-supination movements- Left hand: 3 - Moderate: Any of the following: a) more than 5 interruptions during the movement or at least one longer arrest (freeze) in ongoing movement b) moderate slowing c) the amplitude decrements starting after the 1st supination-pronation sequence. Toe tapping- Right foot: 0 - Normal: No problem. Toe tapping- Left foot: 1 - Slight: Any of the following: a) the regular rhythm is broken with one or two interruptions or hesitations of the tapping movement b) slight slowing c) amplitude decrements near the end of the ten taps. Leg agility - Right le - Normal: No problems. Leg agility - Left le - Normal: No problems. Arising from chair: 0 - Normal: No problems. Able to arise quickly without hesitation. Gait: 0 - Normal: No problems. Freezing of gait: 0 - Normal: No freezing. Postural stability: 0 - Normal: No problems: Recovers with one or two steps. Posture: 1 - Slight: Not quite erect, but posture could be normal for older person. Global spontaneity of movement: 2 - Mild: Mild global slowness and poverty of spontaneous movements. Postural tremor - Right hand: 0 - Normal: No tremor. Postural tremor - Left hand: 0 - Normal: No tremor. Kinetic tremor - Right hand: 0 - Normal: No tremor. Kinetic tremor - Left hand: 0 - Normal: No tremor. Rest tremor amplitude - RUE: 0 - Normal: No tremor. Rest tremor amplitude - LUE: 0 - Normal: No tremor. Rest tremor amplitude - RLE: 0 - Normal: No tremor. Rest tremor amplitude - LLE: 0 - Normal: No tremor. Rest tremor amplitude - Lip/jaw: 0 - Normal: No tremor. Constancy of rest tremor: 0 - Normal: No tremor. MDS-UPDRS Part III - Motor Exam Score: 21 Review of available labs and imaging: Assessment: ICD-10-CM 1. 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 She has had some jaw tremor and on exam today has bradykinesia and rigidity. Asymmetric arm swing during ambulation. Discussed clinical criteria for diagnosis of PD and shedoes meet the criteria. A Kenna had been ordered and she did not want to go through that process. I offered syn-one skin biopsy and she would like to do this if it is covered by insurance. Discussed inthe mean time she could try the carbidopa/levodopa. She was prescribed this but has not filled it yet. Discussed importance of exercise in PD. Plan: - syn one - she has CL prescription to try if she wants - stay active She would like to continue to follow with Dr. Eddy MD [facility] Neurology-Movement Disorders documented in this encounter Plan of Treatment Not on file documented as of this encounter Visit Diagnoses Diagnosis Bradykinesia Abnormal involuntary movements documented in this encounter Care Teams Plastics Technician Relationship Specialty Start Date End Date Komal Zaidi MD [address] [place] [address] PCP - General Family Medicine 10/05/23 documented as of this encounter
--- OUTSIDE RECORDS SUMMARY | 2024-08-03 14:21 | XMS_ITS | Encounter Summary ---
Author Organization [facility] [place] [address] Care Team Providers Care Machine Rigger Name Role Phone Komal Zaidi MD Primary Care Provider [phone] Encounter Details Date Type Department Care Team (Late st Contact Info) Description 10/25/2023 Telephone Neurology at [address] [phone] Subha Lucio MD [facility] [place] [address] Social History Tobacco Use Types Packs/Day Years Used Date Smoking Tobacco: Never Smokeless Tobacco: Never Comments:smokes marijuana Sex and Gender Information Value Date Recorded Sex Assigned at Not on file Gender Identity Not on file Sexual Orientation Not on file documented as of this encounter Miscellaneous Notes * Telephone Encounter - Maria M Angulo RN - 10/25/2023 4:17 PM EDT Copied from [facility] #[id number]. Topic: Specialty Dept CRMs - Orders >> Oct 25, 2023 2:40 PM Armin Howard wrote: Orders Request Specialist: Dr. Lucio Relationship (if other than patient-full name): Patient Type of Request: [x] Input orders Type/Name of Order: Other: Skin Biopsy discussed at appointment 10/05/23. Patient would like to move forward. Patient Requesting to Have Orders Sent to Facility Outside of [facility]: No documented in this encounter Plan of Treatment Not on file documented as of this encounter Visit Diagnoses Not on filedocumented in this encounter Care Teams Machine Rigger Relationship Specialty Start Date End Date Komal Zaidi MD [address] [place] [address] PCP - General Family Medicine 10/05/23 documented as of this encounter
--- OUTSIDE RECORDS SUMMARY | 2024-08-03 14:21 | XMS_ITS | Clinical Summary ---
Author Organization [facility] Address [facility] [place] [address] Care Team Providers Care Correspondent Name Role Phone Komal Zaidi MD Primary Care Provider [phone] Allergies Active Allergy Reactions Criticality Noted Date Comments Penicillins Nausea And Vomiting 04/17/2021 Medications Medication Sig Dispensed Refills Start Date End Date Status lisinopriL (Zestril) 10 mg Tablet Take 20 mg by mouth daily. Active fish oil-omega-3 fatty acids (Fish Oil) 1,000 mg capsule Take 2 g by mouth daily. Active cholecalciferol, Vitamin D3, 50 mcg (2,000 unit) Capsule Take 2,000 capsules by mouth daily. Active mirtazapine (Remeron) 7.5 mg tablet TAKE ONE TABLET BY MOUTH EVERY DAY IN THE EVENING 07/22/2023 Active Ascorbic Acid-Collagen 125-740 mg Capsule Take 1 capsule by mouth daily. Active docusate sodium (Colace) 100 mg capsule Take 100 mg by mouth daily as needed for Constipation. Active Active Problems Problem Noted Date Diagnosed Date Bradykinesia 10/05/2023 Social History Tobacco Use Types Packs/Day Years Used Date Smoking Tobacco: Never Smokeless Tobacco: Never Comments:smokes marijuana Sex and Gender Information Value Date Recorded Sex Assigned at Not on file Gender Identity Not on file Sexual Orientation Not on file Last Filed Vital Signs Vital Sign Reading Time Taken Comments Blood Pressure 142/71 10/05/2023 9:45 AM EDT Pulse 61 10/05/2023 9:45 AM EDT Temperature 36.2 ??C (97.1 ??F) 08/12/2023 1:21 PM ES T Respiratory Rate 18 08/12/2023 1:21 PM EST Oxygen Saturation 98% 08/12/2023 1:21 PM EST Inhaled Oxygen Concentration - - Weight 52.6 kg (115 lb 14.4 oz) 08/12/2023 1:21 PM EST Height 152.4 cm (5') 08/12/2023 1:21 PM EST Body Mass Index 22.64 08/12/2023 1:21 PM EST Plan of Treatment Health Maintenance Due Date Last Done Comments CT Colonography 1950 Colonoscopy 1950 Colorectal Cancer Screening 1950 FIT DNA 1950 FIT 1950 Sigmoidoscopy (10 year) with FIT yearly 1950 Sigmoidoscopy 1950 Hepatitis C Screening 1968 Tetanus/Diphtheria/Pertussis Vaccines (1 - Tdap) 1969 Breast Cancer Share Decision Needed 1990 Pneumoccocal Vaccine: 50+ (1 of 1 - PCV) 2000 Zoster vaccine (1 of 2) 2000 Advance Directive 2005 Bone Density Scan 2015 Breast Cancer screening 03/07/2020 03/07/2018 Covid-19 Vaccine ( season) 2024, 01/18/2022 Influenza (Flu) vaccine (1 o f 1 - Influenza standard series) 03/11/2024 Care Teams Correspondent Relationship Specialty Start Date End Date Komal Zaidi MD [address] [place] [address] PCP - General Family Medicine 10/05/23
--- OUTSIDE RECORDS SUMMARY | 2024-08-03 14:21 | XMS_ITS | Continuity of Care Document ---
Author Organization [facility] Address [address] [place] [address] Assessment No assessment recorded. Plan of Treatment Reminders Order Date Submit Date Provider Last Modified By Organization Details Last Modified Time Details Appointments Office Visit 2024 11:30A M Komal Zaidi Not available Not available Not available Office Visit 2024 09:00A M Komal Zaidi Not available Not available Not available Lab None recorded . Referral None recorded . Procedures None recorded . Surgeries None recorded . Imaging None recorded . Medication Orders None recorded . Patient TargetsNo targets recorded. Patient InstructionsNo instructions recorded. Reason for Referral None Reported. Problems Name Problem SNOMED Code Status Onset Date Resolution Date Notes Provider Name and Address Organization Details Recorded Time Lacerati on of skin 709467191 Completed 202308/03/[address], [place], [address] , [facility] 11:20:13 Injury of face 141295116 Completed 202308/03/[address], [place], [address] , [facility] 11:20:22 History of malignan t neoplasm of colon 500813972 Active 2017 Problem Code: Z85.038; Problem Code Type: ICD-10; MD Lakisha [address], [place], [address] , [facility] 3 10:42:44 [facility] l hyperten obie 00947681 Active 2020 Problem Code: I10; Problem Code Type: ICD-10; MD Lakisha [address] Dr, [address] 3 10:42:44 Vitamin D deficien cy 46557742 Active 2020 Problem Code: E55.9; Problem Code Type: ICD-10; MD Lakisha MIT[address]LL Dr, [address] 3 10:42:44 Hyperlip idemia 75286777 Active 2020 Problem Code: E78.5; Problem Code Type: ICD-10; MD Lakisha MIT[address]LL Dr, [address] 3 10:42:44 Osteoart hritis 036441627 Active 2012 Problem Code: M19.90; Problem Code Type: ICD-10; MD Lakisha MIT[address]LL Dr, [address] 3 10:42:44 Osteoart hritis of hip 618982414 Active 2020 Problem Code: M16.9; Problem Code Type: ICD-10; MD Lakisha MITCHELL Dr, [address] 3 10:42:43 Low back pain 181423944 Active 2012 Problem Code: M54.5; Problem Code Type: ICD-10; MD Lakisha MITCHELL Dr, [address] 3 10:42:44 Segmenta l and somatic dysfunct ion 847890119 Completed 202008/29/2023 Problem Code: M99.04; Problem Code Type: ICD-10; MD Lakisha DAVIS Dr, [address] 4 21:25:28 Polyneur opathy 78563630 Active 2020 Problem Code: G62.9; Problem Code Type: ICD-10; MD Lakisha MITCHELL Dr, [address] 3 10:42:44 Solitary nodule of lung 803579327 Active 2020 Problem Code: R91.1; Problem Code Type: ICD-10; MD Lakisha MITCHELL Dr, [address] 3 10:42:44 History of polyp of colon 708627076 Completed 202008/29/2023 Problem Code: Z86.010; Problem Code Type: ICD-10; MD Lakisha DAVIS Dr, [address] 4 21:25:19 Adult health examinat ion Completed 202008/29/2023 Problem Code: Z00.00; Problem Code Type: ICD-10; MD Lakisha DAVIS Dr, [address] 4 21:25:26 Pre-surg tiffanie evaluati on Completed 202002/03/2021 Problem Code: Z01.818; Problem Code Type: ICD-10; Not Available [facility] 3 05:22:03 Disorder of external ear 66689602 Completed 202108/29/2023 Problem Code: H61.899; Problem Code Type: ICD-10; MD Lakisha DAVIS Dr, [address] 4 21:24:57 Peripher al venous insuffic iency 14149038 Completed 202108/29/2023 Problem Code: I87.2; Problem Code Type: ICD-10; MD Lakisha DAVIS Dr, [address] 4 21:25:38 Loss of sense of smell 67370568 Active 2021 Problem Code: R43.0; Problem Code Type: ICD-10; MD Lakisha MITCHELL Dr, [address] 3 10:42:44 Tubercul osis screenin g Completed 202102/01/2022 Problem Code: Z11.1; Problem Code Type: ICD-10; Not Available [facility] 3 05:22:03 Tremor 67287711 Completed 202110/07/2023 Problem Code: G25.2; Problem Code Type: ICD-10; MD Lakisha DAVIS Dr, [address] 4 19:58:00 Disorder of left Eustachi an tube 15473890784 08828 Completed 202210/20/2022 Problem Code: H69.82; Problem Code Type: ICD-10; Not Available [facility] 3 05:22:04 Asteatos is cutis 92775437 Completed 202208/29/2023 Problem Code: L85.3; Problem Code Type: ICD-10; MD Lakisha DAVIS Dr, [facility] [address] [place] [address] 4 21:25:13 Generali zed anxiety disorder 27996700 Active 2022 Problem Code: F41.1; Problem Code Type: ICD-10; MD Lakisha MITCHELL Dr, [address] 3 10:42:43 Abnormal involunt christine movement 167611081 Completed 202210/07/2023 Problem Code: R25.8; Problem Code Type: ICD-10; MD Lakisha DAVIS Dr, [facility] [address] [place] [address] 19:58:11 Malignan t tumor of ascendin g colon 615087973 Completed 201704/06/2023 Problem Code: C18.2; Problem Code Type: ICD-10; Not Available [facility] 05:22:04 Spasm 81615073 Completed 201212/19/2020 Problem Code: M62.838; Problem Code Type: ICD-10; Not Available [facility] 3 05:22:04 Hypokale ben 24166405 Completed 202208/29/[address], [address] 21:25:45 Initial insomnia 96219429 Completed 202208/29/[address], [address] 21:25:42 Insomnia 010705769 Active [address], [address] 12:09:30 Hypervit aminosis D 03997814 Completed 202208/29/[address], [address] 21:25:48 Asthenia 90640127 Completed 202210/07/[address], [facility] [address] [place] [address] 03/29/202 4 19:58:39 Lesion of skin of face 64845762710 6 Completed 202210/07/[address], [place] [phone] [place] [address] 4 19:58:44 Hypercal cemia 58978746 Completed 202208/29/[address], [address] 21:26:04 Acute hypergly cemia 571077676 Completed 202208/29/[address], [address] 21:25:52 Bradykin esia 337294146 Completed 202210/07/[address], [address] 19:58:26 Constipa tion 65962522 Active [address], [address] 3 07:31:44 Parkinso n's disease 11563424 Active 2023 ANGIE FERNANDEZ RN [facility], [facility] 4 14:48:52 Unintent ional weight loss 955168268 Active [address], [address] 4 09:39:55 Irregula r heart beat 872898825 Active [address], [facility] [phone] [place] [address] 09:44:19 Producti ve cough 14312328 Completed 202308/29/[address], [place] [phone] [place] [address] 21:26:13 [facility] 93755967 Completed 202310/07/[address], [address] 19:58:16 Localize d eruption of skin 855645913 Completed 202310/07/[address], [address] 19:58:22 Dysphagi a 75104521 Active 2023 JOE GARCIA [facility], [facility] 08:01:26 Fatigue 37701951 Active [address], [address] 11:41:39 Notes:*Problem Name: Cervica l somatic dysfunction *Problem Status: inactive *Comments: *Problem Code: M99.01 *Problem Code Type: ICD-10 *Note Date: 12/18/2020 *Problem Name: Thoracic somatic dysfunction *Problem Status: inactive *Comments: *Problem Code: M99.02 *Problem Code Type: ICD-10 *Note Date: 12/18/2020 Problem Notes None recorded. Procedures Surgical History Date Name Laterality Status Provider Name and Address Organization Details Recorded Time 4 Suture/Staple removal completed MARYLU MCCORMICK CMA [facility] 06/13/2024 15:22:09 Laceration Repair completed MD Lakisha DAVIS Dr, [facility] [phone] [place] [address] 06/05/2024 20:35:45 Imaging Results None recorded. Procedure Notes None recorded. Medical Equipment None Reported. Allergies Allergen ID Allergen Name Allergen Category Reaction Reaction Severity Criticality Documentation Date Start Date Code Code System Note Provider Name and Address Organization Details Recorded Time 41325 Product containin g penicilli n and antibioti c (product) medicatio n vomiting moderate Not available 05/20/20232020 45775 05 SNOMED vomit ing Aller gyCod e: '8340 61'; Aller gyNam e: 'PENI CILLI N'; Aller gyCon ceptT ype: 'RX Norm' ; Not Available [facility] 16:06:44 Medications Name Sig Start Date Stop Date Status Note LastModified by Organization Details LastModified Time buspirone 5 mg tablet Take 1 tablet by mouth twice a day 06/15 completed Not Available Not Available Not Available Colace 100 mg capsule Take 1 capsule every day by oral route as needed. active Not Available Not Available No t Available trazodone 50 mg tablet TAKE ONE TABLET BY MOUTH EVERY DAY AT BEDTIME 06/06 completed Not Available Not Available Not Available azithromyci n 250 mg tablet 05/27 completed Not Available Not Available Not Available hydrocodone 5 mg-acetamin ophen 325 mg tablet TAKE ONE TABLET BY MOUTH EVERY 6 HOURS NEEDED FOR PAIN 06/05 completed Not Available Not Available Not Available lisinopril 20 mg tablet TAKE 1 TABLET DAILY active Not Available Not Available No t Available clindamycin HCl 150 mg capsule TAKE ONE CAPSULE BY MOUTH THREE TIMES A DAY UNTIL GONE 06/05 completed Not Available Not Available Not Available potassium chloride ER 10 mEq tablet,exte nded release TAKE ONE TABLET BY MOUTH EVERY DAY YOUR POTASSIUM AND KINEY FUNCTION SHOULD BE RECHECKED BY PCP AT NEXT VISIT 05/27 completed Not Available Not Available Not Available Vitamin D3 10 mcg (400 unit) tablet Take 1 tablet by mouth once a day 250 mcg (10,000 IU) 09/24 completed Not Available Not Available Not Available cephalexin 500 mg capsule Take 1 capsule by mouth four times a day for 5 days 08/03 completed Not Available Not Available Not Available lisinopril 10 mg tablet TAKE 1 TABLET ONCE DAILY 05/27 completed Not Available Not Available Not Available gabapentin 300 mg capsule Take 1 capsule by mouth twice a day as needed 05/27 completed Not Available Not Available Not Available sertraline 25 mg tablet TAKE ONE TABLET BY MOUTH EVERY DAY 05/27 completed Not Available Not Available Not Available hydrochloro thiazide 25 mg tablet Take 1 tablet every day by oral route. 06/08 completed Not Available Not Available Not Available metoprolol succinate ER 25 mg tablet,exte nded release 24 hr Take 1 tablet by mouth once a day 02/22 completed Not Available Not Available Not Available carbidopa 25 mg-levodopa 100 mg tablet TAKE ONE TABLET BY MOUTH THREE TIMES A DAY (6AM., 11AM., AND 4PM.) active Not Available Not Available No t Available hydroxyzine HCl 10 mg tablet TAKE ONE TO TWO TABLETS BY MOUTH EVERY EVENING NEEDED FOR INSOMNIA 05/27 completed Not Available Not Available Not Available sertraline 50 mg tablet TAKE ONE TABLET BY MOUTH EVERY DAY START AFTER TAKING ONE WEEK OF 25MG DAILY 06/08 completed Not Available Not Available Not Available Ambien 5 mg tablet 1-2 tablets every day at bedtime 06/29 completed Not Available Not Available Not Available neomycin 3.5 mg/g-polymy dari B 10,000 unit/g-dexa meth 0.1 % eye oint APPLY A SMALL AMOUNT ON EYELID EVERY NIGHT AT BEDTIME active Not Available Not Available No t Available Vitamin D3 25 mcg (1,000 unit) capsule TAKE 2 CAPSULE ONCE DAILY 2021 active Not Available Not Available Not Avai lable mirtazapine 7.5 mg tablet Take 1 tablet every day by oral route in the evening. 2024 active Not Available Not Available Not Avai lable pregabalin 50 mg capsule TAKE ONE CAPSULE BY MOUTH TWICE A DAY NEEDED 05/27 completed Not Available Not Available Not Available Collagen Plus Vitamin C 125 mg-740 mg capsule Take 1 capsule by mouth once a day active Not Available Not Available No t Available psyllium husk 1 tablespoo n 1x a day active Not Available Not Available No t Available glucosamine HCl-D3-Bosw ellia annel 1,500 mg-400 unit-100 mg tablet Take 1-6 tablet by mouth once a day 09/22 completed Not Available Not Available Not Available PreviDent 5000 Booster Plus 1.1 % dental paste Apply 1 a small amount to teeth at bedtime 09/22 completed Not Available Not Available Not Available BinaxNOW COVID-19 Ag Self Test kit Use as Directed on the Package 05/27 completed Not Available Not Available Not Available Vitals None Recorded Social History Question Answer Notes LastModified by Organizat ion Details LastModified Time Tobacco Smoking Status Never Smoker ELFEGO TALLEY RN [facility], [facility] 05/27/2023 10:00:47 Do You Have An Advance Directive? Yes Dated 08/05/21 [email or web address] Information not available 09/01/2023 What Is Your Level Of Alcohol Consumption? None [email or web address] Information not available 05/27/2023 What Was The Date Of Your Most Recent Tobacco Screening? 08/03/2024 [email or web address] Information not available 08/03/2024 Has Tobacco Cessation Counseling Been Provided? No [email or web address] Information not available 05/27/2023 Sex: Female Functional Status None recorded. Mental Status None recorded. Family History Nothing Reported Notes:*Problem: father (d.84 ) lung cancer, COPD mother (d.85) myocardial infarction MGM- HTN family history positive [place] breast cancer Medical History No medical history recorded. Gynecological HistoryNo gynecological history recorded. Obstetrics History GPAL:G 0 P 0 0 0 0 Immunizations Vaccine Type Date Status Note Provider Nam e and Address Organization Details Recorded Time Tdap 4 completed MD [address], [place], [address], [facility] 08/29/2023 21:05:47 COVID-19, mRNA, LNP-S, PF, herb-sucrose, 30 mcg/0.3 mL 4 completed MD [address], [place], [address], [facility] 10/07/2023 19:51:04 pneumococcal, unspecified formulation 8 completed Not Available [facility] 05/20/2023 06:02:30 Influenza, high-dose, quadrivalent, PF 2 completed Not Available [facility] 05/20/2023 06:02:30 COVID-19, mRNA, LNP-S, PF, 100 mcg/0.5mL dose or 50 mcg/0.25mL dose 1 completed Not Available [facility] 05/20/2023 06:02:30 COVID-19, mRNA, LNP-S, PF, 100 mcg/0.5mL dose or 50 mcg/0.25mL dose 1 completed Not Available [facility] 05/20/2023 06:02:30 COVID-19, mRNA, LNP-S, PF, 100 mcg/0.5mL dose or 50 mcg/0.25mL dose 2 completed Not Available [facility] 05/20/2023 06:02:30 COVID-19, mRNA, LNP-S, PF, 100 mcg/0.5mL dose or 50 mcg/0.25mL dose 1 completed Not Available [facility] 05/20/2023 06:02:31 COVID-19, mRNA, LNP-S, bivalent, PF, 30 mcg/0.3 mL dose 2 completed Not Available [facility] 05/20/2023 06:02:31 pneumococcal polysaccharide PPV23 3 completed Not Available [facility] 05/20/2023 06:02:31 influenza, unspecified formulation 8 completed Not Available [facility] 05/20/2023 06:02:31 COVID-19, mRNA, LNP-S, PF, herb-sucrose, 30 mcg/0.3 mL 3 completed BAL LOPEZ, [facility] 06/13/2023 10:33:30 influenza, unspecified formulation 3 completed BAL LOPEZ, [facility] 06/13/2023 10:34:40 Past Encounters Encounter ID Performer Location Encounter Start Date Encounter Closed Date Diagnosis/Indication Diagnosis SNOMED-CT Code Diagnosis ICD10 Code Diagnosis Note [id number] KOMAL ZAIDI MD [address] [address] 06/05/2024 13:17:51 06/05/2024 14:23:35 Laceration of skin 236153972 T14.8XXA Wound cleaned and reapproxim ated. Given contaminat ed nature of the wound, and location on the face, prescribed cephalexin to prevent infection. Patient tolerated well. Injury of face 745724287 S09.93XA No evidence of fracture on exam today. If pain doesn't continue to resolve as expected, she will reach out for further evaluation . [id number] MARYLU MCCORMICK, [address] [address] 06/13/2024 15:01:44 06/13/2024 15:23:15 Injury of face 306913966 S09.93XA No evidence of fracture on exam today. If pain doesn't continue to resolve as expected, she will reach out for further evaluation . Health Concerns Section Related Observation LastModified by Organization Detai ls LastModified Time None Recorded Concern Status LastModified by Organization Details LastModified Time None Recorded Payers Encounter Date Sequence Insurance Name Policy Number Policy [place] Covered Member ID [place] Member ID Guarantor Name 06/13/2024 1 [place] [employer] Anita Santiago [id number] Anita Santiago 06/13/2024 2 [facility] [employer] OPTIONS (MEDICARE SUPPLEMENT) Anita Santiago [id number] Anita Santiago OBGyn Episode No OBEpisode recorded.
--- OUTSIDE RECORDS SUMMARY | 2024-08-03 14:21 | XMS_ITS | Encounter Summary ---
Author Organization [facility] [address] Care Team Providers Care Vaccinator Name Role Phone Alireza Peres MD Primary Care Provider Encounter Details Date Type Department Care Team (Late st Contact Info) Description 06/24/2022 Ancillary Procedure Radiology Library at [facility] [place] [address] Alireza Peres MD [address] [place], [place] [address] Social History Tobacco Use Types Packs/Day Years [...] Procedure Name Priority Date/Time Associated Diagnosis Comments FILM LIBRARY STORAGE ONLY CT CHEST ABDOMEN PELVIS Routine 06/24/2022 12:00 AM EST documented in this encounter Results * Film Library- Storage Only CT Chest Abdomen Pelvis (06/24/2022 12:00 AM EST) Narrative [facility] - 06/25/2022 9:01 AM EST This exam is auto-finalizing. It's purpose is for storage only. Alireza Peres MD IMG FILM LIBRARY ORD ERABLES [place], [place] documented in this encounter Visit Diagnoses Not on filedocumented in this encounter Care Teams Vaccinator Relationship Specialty Start Date End Date Alireza Peres MD [address] [place] [address] PCP - General Internal Medicine 01/27/21 10/04/23 documented as of this encounter
--- OUTSIDE RECORDS SUMMARY | 2024-08-03 14:21 | XMS_ITS | Encounter Summary ---
Author Organization [facility] Address [address] [place] [address] Care Team Providers Care Pharmacy Service Associate Name Role Phone Unavailable Primary Care Provider Unavailabl e Encounter Details Date Type Department Care Team (Late st Contact Info) Description 08/05/2023 Lab Requisition [facility] Pathology & Laboratory Medicine - [facility] [address] [place] [address] Outr Resulting Lab, Provider Social History Tobacco [...] Priority Date/Time Associated Diagnosis Comments CEA Routine 08/05/2023 9:30 EST documented in this encounter Results * CEA (08/05/2023 9:30 EST) CEA 3.0 See Note ng/mL 08/05/2023 17:44 EST [facility] Comment: % Distribution of CEA [...] used interchangeably. Blood VENOUS BLOOD / Unknown 08/05/2023 9:30 EST 08/05/2023 16:38 EST us Provider Outr Resulting Lab CHEMISTRY & BLOOD GA S ORDERABLES Final Result [facility] [address] [place] [address] documented in this encounter Visit Diagnoses Not on filedocumented in this encounter
--- OUTSIDE RECORDS SUMMARY | 2024-08-03 14:21 | XMS_ITS | Encounter Summary ---
Author Organization [facility] Address [address] [place] [address] Care Team Providers Care Cooperer Name Role Phone Unavailable Primary Care Provider Unavailabl e Encounter Details Date Type Department Care Team (Late st Contact Info) Description 01/05/2023 Lab Requisition [facility] Pathology & Laboratory Medicine - [facility] [address] [place] [address] Outr Resulting Lab, Provider Social History Tobacco [...] Priority Date/Time Associated Diagnosis Comments CEA Routine 01/05/2023 8:00 EDT documented in this encounter Results * CEA (01/05/2023 8:00 EDT) CEA 3.1 See Note ng/mL 01/05/2023 18:45 EDT [facility] Comment: % Distribution of [...] used interchangeably. Blood VENOUS BLOOD / Unknown 01/05/2023 8:00 EDT 01/05/2023 17:07 EDT us Provider Outr Resulting Lab CHEMISTRY & BLOOD GA S ORDERABLES Final Result [facility] [address] [place] [address] documented in this encounter Visit Diagnoses Not on filedocumented in this encounter
--- OUTSIDE RECORDS SUMMARY | 2024-08-03 14:21 | XMS_ITS | Encounter Summary ---
Author Organization [facility] Address [address] [place] [address] Care Team Providers Care Central Supply Aide Name Role Phone Unavailable Primary Care Provider Unavailabl e Encounter Details Date Type Department Care Team (Late st Contact Info) Description 05/12/2021 Lab Requisition [facility] Pathology & Laboratory Medicine - [facility] [address] [place] [address] Outr Resulting Lab, Provider Social History Tobacco [...] Priority Date/Time Associated Diagnosis Comments CEA Routine 05/12/2021 7:50 EDT documented in this encounter Results * CEA (05/12/2021 7:50 EDT) CEA 2.5 See Note ng/mL 05/12/2021 18:12 EDT [facility] Comment: % Distribution of [...] used interchangeably. Blood VENOUS BLOOD / Unknown 05/12/2021 7:50 EDT 05/12/2021 16:26 EDT us Provider Outr Resulting Lab CHEMISTRY & BLOOD GA S ORDERABLES Final Result [facility] [address] [place] [address] documented in this encounter Visit Diagnoses Not on filedocumented in this encounter
--- OUTSIDE RECORDS SUMMARY | 2024-08-03 14:21 | XMS_ITS | Encounter Summary ---
Author Organization [facility] Address [facility] [place] [address] Care Team Providers Care Head Automatic Sawyer Name Role Phone Alireza Peres MD Primary Care Provider [phone] Encounter Details Date Type Department Care Team (Late st Contact Info) Description 08/12/2023 1:30 PM EST Office Visit Hematology/Oncology at [address] [phone] Malcom Ding MD [facility] [place] [address] Windy Samuels, [address] [place] [address] Malignant neoplasm of ascending colon [...] Sign Reading Time Taken Comments Blood Pressure 131/84 08/12/2023 1:21 PM EST Pulse 73 08/12/2023 1:21 PM EST Temperature 36.2 ??C (97.1 ??F) 08/12/2023 1:21 PM ES T Respiratory Rate 18 08/12/2023 1:21 PM EST Oxygen Saturation 98% 08/12/2023 1:21 PM EST Inhaled Oxygen Concentration - - Weight 52.6 kg (115 lb 14.4 oz) 08/12/2023 1:21 PM EST Height 152.4 cm (5') 08/12/2023 1:21 PM EST Body Mass Index 22.64 08/12/2023 1:21 PM EST documented in this encounter Progress Notes * Windy Samuels, BRAILLE AND TALKING BOOKS CLERK - 08/12/2023 1:30 PM EST Images from the original note were not included. Subjective Patient ID: Anita Santiago is a 73 y.o. female. HPI Problem List: 1. Colon cancer, pT3a, pN2a Received care in [place] Medical Oncologist - Anjel Mirza at [facility] [address] [place] [address] [place] [address] ; A. Presented with iron deficiency anemia 02/11/18 Ascending colon - invasive adenocarcinoma 02/14/18 CT c/a/p - diffuse thickening of the ascending colon up to 1.5 cm, spanning 6 cm with at least 5 adjacent LNs in the mesentery and pelvis. 02/22/18 Pre-op CEA - 26.7 B. 03/17/18 - Ascending colectomy. Path - adenocarcinoma, grade 2, tumor invades muscularis propria into pericolic tissue but not invading the visceral peritoneum. 11/01 LNs involved. PT3a, N2a. MSI low C. Post-operative chemotherapy - Folfox x 12 cycles, last given in 11/2018. D. Colonoscopy fall - negative. Colonoscopy 07/08/21 - 6 small polyps sent, serrated polyps/adenomas and colonic mucosa with evidence of mucosal prolapse. Recommended f/u in 3 years. CEA in 09/2020 - <[address] c/a/p 05/12/21 - Impression: 1. [...] lesions identified. There are bilateral hip prostheses. F. CT c/a/p 06/24/22 - Impression: 1. No evidence of metastatic disease in the chest 2. No evidence of metastatic disease in the abdomen or pelvis. G. CT c/a/p 08/05/23 2. HTN 3. Osteoarthritis S/p right bilateral SILVIA 4. HD in 20s MOPP followed by pola LE Anita Santiago is a 73 y.o. female diagnosed 03/28 with adenocarcinoma of the ascending colon. (See history as summarized above.) She was treated with surgery (ascending colectomy) and 12 cycles of Folfox. She is feeling fair. She's been told she most likely has Parkinson's disease and she's struggling with this diagnosis. She will begin PT next week and is trying to get a second opinion at [facility] Her bowels have been working well and she's taking colace and psyllium. No blood in her stool, no abd pain. She denies fever, chills, or night sweats. No new lumps or bumps. She denies shortness of breath, new cough or chest pain. She stopped playing the flute as the gabapentin was no longer helpful, this has been sad for her. Appetite is missing she reports. She's down about 15 lbs this visit compared to last summer. She is eating 3 meals a day but can't really gain weight. She will be working with her PCP on this. Other ROS are negative. Allergies Allergen Reactions Penicillins Nausea And Vomiting Current Medications mirtazapine (Remeron) 7.5 mg tablet Ascorbic Acid-Collagen 125-740 mg Capsule fish oil-omega-3 fatty acids (Fish Oil) 1,000 mg capsule cholecalciferol, Vitamin D3, 50 mcg (2,000 unit) Capsule lisinopriL (Zestril) 10 mg Tablet metoprolol succinate XL (Toprol-XL) 25 mg ER 24 hr tablet gabapentin (Neurontin) 300 mg Capsule Review of Systems Constitutional: Negative. HENT: Negative. Respiratory: Negative. Cardiovascular: Negative. Gastrointestinal: Negative. Musculoskeletal: Negative. Neurological: Negative for numbness. Hematological: Negative. Psychiatric/Behavioral: Negative. Objective Physical Exam Vitals reviewed. Constitutional: General: She is not in acute distress. HENT: Head: Normocephalic and atraumatic. Nose: No congestion. Eyes: General: No scleral icterus. Cardiovascular: Rate and Rhythm: Normal rate. Pulmonary: Effort: Pulmonary effort is normal. No respiratory distress. Abdominal: General: Abdomen is flat. Skin: Coloration: Skin is not jaundiced. Neurological: Mental Status: She is alert and oriented to person, place, and time. Psychiatric: Mood and Affect: Mood normal. Thought Content: Thought content normal. BP 131/84 (Patient Position: Sitting) Pulse 73 Temp 36.2 ??C (97.1 ??F) (Temporal) Resp 18 Ht 152.4 cm (5') Wt 52.6 kg (115 lb 14.4 oz) SpO2 98% BMI 22.64 kg/m?? LABS 08/05/23: WBC 6.58; ANC 4000; H/H 13.6/40.9; PLT 171,000; BUN 19; CREAT 0.9; BILI 0.5; Chloride 108,remainder of CMP otherwise unremarkable. CEA 08/05/23 3.0 01/05/23: 3.1 06/24/22: 2.6 08/28/21: 2.2 05/12/21: 2.5 Assessment & Plan Anita Santiago is a 73 y.o. female diagnosed 03/28 with adenocarcinoma of the ascending colon. (See history as summarized above.) She was treated with surgery (ascending colectomy) and 12 cycles of Folfox which completed in November of 2018. Most recent CT scan is read as stable, no evidence of metastatic disease. Lung nodules being observed are also stable. Her most recent colonoscopy was June 2021 with multiple tiny polyps per surgical report. Nonewere malignant. Recommended repeat in 3 years (June 2024). Anita has had some new medical challenges including a high suspicion for Parkinson's disease. She is starting PT soon and will be getting a second opinion with [facility] neurology. She is now 5 years out from completion of cancer therapy. Clinically and radiographically there areno signs of cancer recurrence. Per the NCCN guidelines, she can be discharged from oncology care. She is agreeable with this, particularly given her new health concerns. Recommended surveillance is fo r her PCP to continue with colonoscopies, her next one will be due June 2024. No future appointments will be planned. documented in this encounter Plan of Treatment Not on file documented as of this encounter Visit Diagnoses Diagnosis Malignant neoplasm of ascending colon documented in this encounter Care Teams Head Automatic Sawyer Relationship Specialty Start Date End Date Alireza Peres MD [address] [place] [address] PCP - General Internal Medicine 01/27/21 10/04/23 documented as of this encounter
--- OUTSIDE RECORDS SUMMARY | 2024-08-03 14:21 | XMS_ITS | Encounter Summary ---
[place] [address] Care Team Providers Care Motorcycle Tester Name Role Phone Alireza Peres MD Primary Care Provider [phone] Encounter Details Date Type Department Care Team (Late st Contact Info) Description 01/12/2023 9:30 AM EDT Office Visit Hematology/Oncology at [address] [phone] Windy Samuels APRN [address] [place] [address] DR HEMATOLOGY [place] [address] Malignant neoplasm of ascending colon [...] Sign Reading Time Taken Comments Blood Pressure 142/92 01/12/2023 10:06 AM EDT Pulse 67 01/12/2023 10:06 AM EDT Temperature 36.4 ??C (97.5 ??F) 01/12/2023 10:06 AM E DT Respiratory Rate 18 01/12/2023 10:06 AM EDT Oxygen Saturation 98% 01/12/2023 10:06 AM EDT Inhaled Oxygen Concentration - - Weight 59.1 kg (130 lb 6.4 oz) 01/12/2023 10:06 AM EDT Height 152.4 cm (5') 01/12/2023 10:06 AM EDT Body Mass Index 25.47 01/12/2023 10:06 AM EDT documented in this encounter Progress Notes * Windy Samuels APRN - 01/12/2023 9:30 AM EDT Subjective Patient ID: Anita Santiago is a 72 y.o. female. HPI Patient ID: Anita Santiago is a 70 y.o. female. Problem List: 1. Colon cancer, pT3a, pN2a Received care in [place]. Medical Oncologist - Anjel Mirza at [facility] [address] [place] [address] ; A. Presented with iron deficiency anemia [...] tissue but not invading the visceral peritoneum. 4/24 LNs involved. PT3a, N2a. MSI low C. [...] metastatic disease in the abdomen or pelvis. 2. HTN 3. Osteoarthritis S/p right bilateral SILVIA 4. HD in 20s MOPP followed by pola HPI Anita Santiago is a 72 y.o. female diagnosed 03/28 with adenocarcinoma of the ascending colon. (See history as summarized above.) She was treated with surgery (ascending colectomy) and 12 cycles of Folfox. She is feeling well. Her energy is good. Her appetite is good. Her bowels have been more constipated than usual. She has been using psyllium with good effect. No blood in her stool, no abd pain. Doesthink she's getting bloated more often than usual, she's attributing this to her diet choices. Appetite has been good, her weight is down a few lbs this visit but that is intentional, she prefers to live around 125-128 lbs Anita continues to play her flute and mandolin with friends, and has now added Obo. 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 She takes gabapentin before playing the flute and this seems to help. She does not have neuropathy on her fingers or feet. She had episodes of having jitters in the spring and they found that the gabapentin wasn't reacting well with caffeine. She now avoids coffee on gabapentin day and her jitters have resolved. She has noticed she thinks she's slowing down somewhat, and is curious about a neuro eval. She willdiscuss this with her PCP. She denies fever, chills, or night sweats. No new lumps or bumps. She denies shortness of breath, new cough or chest pain. Other ROS are negative. Allergies Allergen Reactions Penicillins Nausea And Vomiting Current Medications metoprolol succinate XL (Toprol-XL) 25 mg ER 24 hr tablet fish oil-omega-3 fatty acids (Fish Oil) 1,000 mg capsule cholecalciferol, Vitamin D3, 50 mcg (2,000 unit) Capsule lisinopriL (Zestril) 10 mg Tablet gabapentin (Neurontin) 300 mg Capsule Review of [...] normal. Thought Content: Thought content normal. BP (!) 142/92 (Patient Position: Sitting) Pulse 67 Temp 36.4 ??C (97.5 ??F) (Temporal) Resp 18 Ht 152.4 cm (5') Wt 59.1 kg (130 lb 6.4 oz) SpO2 98% BMI 25.47 kg/m?? LABS 01/05/23: WBC 7.37; ANC 4040; H/H 13.8/42.7; PLT 178,000; BUN 20; CREAT 1.0; BILI 0.6; remainder of CMP otherwise unremarkable. CEA 01/05/23: 3.1 06/24/22: 2.6 08/28/21: 2.2 05/12/21: 2.5 Assessment & Plan Anita Santiago is a 72 y.o. female diagnosed 03/28 with adenocarcinoma of the ascending colon. (See history as summarized above.) She was treated with surgery (ascending colectomy) and 12 cycles of Folfox which completed in November of 2018. Most recent CT scan is read as stable, no evidence of metastatic disease. Lung nodules being observed are also stable. Anita is doing well and has no clinical signs of cancer recurrence. Her most recent colonoscopy wasDe2020 with multiple tiny polyps per surgical report. None were malignant. Recommended repeat in 3 years (June 2024). She will RTC with labs in 6 months with a surveillance CT scan. We remain available to be seen sooner if anything changes. documented in this encounter Plan of Treatment Not on file documented as of this encounter Visit Diagnoses Diagnosis Malignant neoplasm of ascending colon documented in this encounter Care Teams Motorcycle Tester Relationship Specialty Start Date End Date Alireza Peres MD [address] [place] [address] PCP - General Internal Medicine 01/27/21 10/04/23 documented as of this encounter
--- OUTSIDE RECORDS SUMMARY | 2024-08-03 14:21 | XMS_ITS | Encounter Summary ---
Author Organization [facility] [place] [address] Care Team Providers Care Administration Internship Name Role Phone Alireza Peres MD Primary Care Provider Encounter Details Date Type Department Care Team (Late st Contact Info) Description 08/05/2023 Ancillary Procedure Radiology Library [place] [facility] [place] [phone] Alireza Peres MD [address] [place], [place] [id number] Social History Tobacco Use Types Packs/Day Years [...] STORAGE ONLY CT CHEST ABDOMEN PELVIS Routine 08/05/2023 12:00 AM EST documented in this encounter Results * Film Library- Storage Only CT Chest Abdomen Pelvis (08/05/2023 12:00 AM EST) Narrative [facility] - 08/06/2023 4:40 AM EST This exam is auto-finalizing. It's purpose is for storage only. Alireza Peres MD IMG FILM LIBRARY ORD ERABLES [place], [place] documented in this encounter Visit Diagnoses Not on filedocumented in this encounter Care Teams Administration Internship Relationship Specialty Start Date End Date Alireza Peres MD [address] [place] [address] PCP - General Internal Medicine 01/27/21 10/04/23 documented as of this encounter
--- OUTSIDE RECORDS SUMMARY | 2024-08-03 14:21 | XMS_ITS | Encounter Summary ---
Author Organization [facility] Address [address] [place] [address] Care Team Providers Care Aluminum Hydroxide Process Operator Name Role Phone Unavailable Primary Care Provider Unavailabl e Encounter Details Date Type Department Care Team (Late st Contact Info) Description 08/28/2021 Lab Requisition [facility] Pathology & Laboratory Medicine - [facility] [address] [place] [address] Outr Resulting Lab, Provider Social History Tobacco [...] Priority Date/Time Associated Diagnosis Comments CEA Routine 08/28/2021 12:40 EST documented in this encounter Results * CEA (08/28/2021 12:40 EST) CEA 2.2 See Note ng/mL 08/28/2021 23:28 EST [facility] Comment: % Distribution of CEA [...] used interchangeably. Blood VENOUS BLOOD / Unknown 08/28/2021 12:40 EST 08/28/2021 21:38 EST us Provider Outr Resulting Lab CHEMISTRY & BLOOD GA S ORDERABLES Final Result [facility] [address] [place] [address] documented in this encounter Visit Diagnoses Not on filedocumented in this encounter
--- OUTSIDE RECORDS SUMMARY | 2024-08-03 14:21 | XMS_ITS | Continuity of Care Document ---
Author Organization [facility] Address [address] [place] [address] Care Team Providers Care Braider Operator Name Role Phone Alireza Peres Primary Care Physician [phone] Encounter [facility] Date(s): 10/31/23 - 10/31/23 [facility] [address] [place] [address] Discharge Disposition: Home Allergies, Adverse Reactions, Alerts Substance Reaction Severity Status penicillin Moderate Active Assessment and Plan Future Appointments Medications lisinopril 20 mg oral tablet 20 mg = 1 tab, Oral, Daily, # 90 tab, 0 Refill(s) Start Date: 09/30/23 Status: Ordered mirtazapine 7.5 mg oral tablet 7.5 mg = 1 tab, Oral, every night at bedtime, # 180 tab, 0 Refill(s) Start Date: 10/06/23 Status: Ordered Problem List Condition Confirmation Course Effective Dates Status H ealth Status Informant Constipation Confirmed Active Dysphagia Confirmed Active Essential hypertension Confirmed Active Fatigue Confirmed Active Generalized anxiety disorder Confirmed Active History of degenerative joint disease Confirmed Active Hip pain Confirmed Active History of Hodgkin's lymphoma Confirmed Active History of colon cancer Confirmed Active Hx of colonic polyps Confirmed Active Hyperlipemia Confirmed Active Insomnia Confirmed Active Anosmia Confirmed Active Lower back pain Confirmed Active Pulmonary nodule Confirmed Active Osteoarthritis Confirmed Active Parkinson disease Confirmed Active Peripheral neuropathy Confirmed Active Sleep state misperception Confirmed Active Venous insufficiency Confirmed Active Vitamin D deficiency Confirmed Active Social History Social History Type Response Tobacco Never tobacco user T obacco Use:. Sex Patient Care team information Care Team Personnel Name: Alireza Peres MD Position: No Access Member Role: Primary Care Physician Address: Address: [address] [place] [id number] [place] Care Team Related Persons Name: FABI MYRICK
--- OUTSIDE RECORDS SUMMARY | 2024-08-03 14:21 | XMS_ITS | Clinical Summary ---
Author Organization [facility] Address [address] [place] [address] Care Team Providers Care Power Wood Sawyer Name Role Phone Unavailable Primary Care Provider Unavailabl e Social History Tobacco Use Types Packs/Day Years Used Date Smoking Tobacco: Never Assessed Comments Unknown Sex and Gender Information Value Date Recorded Sex Assigned at Not on file Legal Sex Female 12:48 EDT Gender Identity Not on file Sexual Orientation Not on file Plan of Treatment Health Maintenance Due Date Last Done Comments Hepatitis C Screen 1950 Fall Risk Screening 2015 COVID-19 Vaccine (2023-25 season) 2024 RSV Immunization ( o r 60+ Years) (1 - 1-dose 75+ series) 2025
--- OUTSIDE RECORDS SUMMARY | 2024-08-03 14:21 | XMS_ITS | Encounter Summary ---
Author Organization [facility] Address [address] [place] [address] Care Team Providers Care Clinic Scheduler Name Role Phone Unavailable Primary Care Provider Unavailabl e Encounter Details Date Type Department Care Team (Late st Contact Info) Description 10/21/2022 Lab Requisition [facility] Pathology & Laboratory Medicine - [facility] [address] [place] [address] Outr Resulting Lab, Provider Social History Tobacco [...] Procedure Name Priority Date/Time Associated Diagnosis Comments SPEP, INCLUDES QUANTITATION OF MONOCLONAL SPIKE PERFORMABLE Today 10/21/2022 12:15 EDT HOLD SST Today 10/21/2022 12:15 EDT SPEP, INCLUDES QUANTITATION OF MONOCLONAL SPIKE Today 10/21/2022 12:15 EDT PROTEIN, TOTAL Today 10/21/2022 12:15 EDT CEA Today 10/21/2022 12:15 EDT documented in this encounter Results * HOLD SST (10/21/2022 12:15 EDT) Hold Hold 10/21/2022 22:[address] [facility] Blood VENOUS BLOOD / Unknown 10/21/2022 12:15 EDT 10/21/2022 21:26 EDT us Provider Outr Resulting Lab LAB INFO SERVICE AND SUPPORT & PHONE RESULT Final Result [facility] [address] [place] [address] * SPEP, INCLUDES QUANTITATION OF MONOCLONAL SPIKE PERFORMABLE (10/21/2022 12:15 EDT) Albumin % 62.3 55.8 - 66.1 % 10/22/2022 13:58 [facility] Albumin g/dL 4.5 3.6 - 5.2 g/dL 10/22/2022 13:58 [facility] Alpha-1 % 4.0 2.9 - 4.9 % 10/22/2022 13:58 [facility] Alpha-1 g/dL 0.30 0.15 - 0.40 g/dL 10/22/2022 13:58 [facility] Alpha-2 % 7.9 7.1 - 11.8 % 10/22/2022 13:58 [facility] Alpha-2 g/dL 0.60 0.50 - 1.00 g/dL 10/22/2022 13:58 [facility] Beta % 10.4 8.4 - 13.1 % 10/22/2022 13:58 [facility] Beta g/dL 0.80 0.60 - 1.20 g/dL 10/22/2022 13:58 [facility] Gamma % 15.4 11.1 - 18.8 % 10/22/2022 13:58 [facility] Gamma g/dL 1.10 0.60 - 1.60 g/dL 10/22/2022 13:58 [facility] SPEP Comment No apparent monoclonal protein seen on serum electrophoresis 10/22/2022 13:58 [facility] Comment:See scanned/suppleme ntary report. Total Protein 7.3 6.3 - 8.2 g/dL 10/22/2022 13:58 [facility] Blood VENOUS BLOOD / Unknown 10/21/2022 12:15 EDT 10/21/2022 21:22 EDT us Provider Outr Resulting Lab CHEMISTRY & BLOOD GA S ORDERABLES Final Result Performing Organization Address City/[facility]/ZIP Co de Phone Number [facility] [address] [place] [address] * PROTEIN, TOTAL (10/21/2022 12:15 EDT) Blood VENOUS BLOOD / Unknown 10/21/2022 12:15 EDT 10/21/2022 21:22 EDT us Provider Outr Resulting Lab CHEMISTRY & BLOOD GA S ORDERABLES Final Result Performing Organization Address [facility] Co de Phone Number [facility] [address] [place] [address] * CEA (10/21/2022 12:15 EDT) CEA 3.4 See Note ng/mL 10/21/2022 22:[address] [facility] Comment: % Distribution of [...] used interchangeably. Blood VENOUS BLOOD / Unknown 10/21/2022 12:15 EDT 10/21/2022 21:22 EDT us Provider Outr Resulting Lab CHEMISTRY & BLOOD GA S ORDERABLES Final Result Performing Organization Address [facility]/ZIP Co de Phone Number [facility] [address] [place] [address] documented in this encounter Visit Diagnoses Not on filedocumented in this encounter
--- OUTSIDE RECORDS SUMMARY | 2024-08-03 14:21 | XMS_ITS | Encounter Summary ---
Author Organization [facility] [place] [address] Care Team Providers Care Master Lay Out Specialist Name Role Phone Alireza Peres MD Primary Care Provider [phone] Encounter Details Date Type Department Care Team (Late st Contact Info) Description 10/19/2022 Telephone Hematology/Oncology at [address] [phone] Rosa Damon RN Social History Tobacco Use Types Packs/Day Years Used Date Smoking Tobacco: Never Smokeless Tobacco: Never Comments:smokes marijuana Sex and Gender Information Value Date Recorded Sex Assigned at Not on file Gender Identity Not on file Sexual Orientation Not on file documented as of this encounter Miscellaneous Notes * Telephone Encounter - Rosa Damon RN - 10/19/2022 12:00 PM EDT ----- Message from Gill Mcdermott sent at 10/18/2022 11:17 AM EDT ----- Anita called in looking to see if Neuropathy can get worse, she is on gabapentin (Neurontin) 300 mgCapsule and she feels that it is not working as well, she is having it in her lips and mouth and itis 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 She has a call out to PCP also about this. It looks like she is to have a recall in December but does not want to wait that long to get a Best call back number [phone] RN Follow-Up Note Discussed with Veronica Samuels APRN and she suggests that patient await to hear from PCP office regarding neuropathy. 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 States that she was doing that but has noticed this year and more and more that she needs to take the gabapentin even to practice at home. Reports that yesterday she took one tablet on the morning before practice and one tablet prior to her rehearsal and that seemed to help. Patient reports that she has appt scheduled with PCP, Dr. Peres on to discuss. Advised that she discuss with him and let us know if there are any further questions/concerns. She agreed withthis plan documented in this encounter Plan of Treatment Not on file documented as of this encounter Visit Diagnoses Not on filedocumented in this encounter Care Teams Master Lay Out Specialist Relationship Specialty Start Date End Date Alireza Peres MD [address] [place] [address] PCP - General Internal Medicine 01/27/21 10/04/23 documented as of this encounter
--- OUTSIDE RECORDS SUMMARY | 2024-08-03 14:21 | XMS_ITS | Encounter Summary ---
[place] [address] Care Team Providers Care Steamfitter Name Role Phone Komal Zaidi MD Primary Care Provider [phone] Encounter Details Date Type Department Care Team (Latest Contact Info) Description 12/12/2023 Travel Social History Tobacco Use Types Packs/Day [...] on filedocumented in this encounter Care Teams Steamfitter Relationship Specialty Start Date End Date Komal Zaidi MD [address] [place] [address] PCP - General Family Medicine 10/05/23 documented as of this encounter
--- OUTSIDE RECORDS SUMMARY | 2024-08-03 14:21 | XMS_ITS | Encounter Summary ---
[place] [address] Care Team Providers Care Window Repairer Name Role Phone Komal Zaidi MD Primary Care Provider Encounter Details Date Type Department Care Team (Latest Contact Info) Description 12/12/2023 11:15 AM EDT Procedure visit Neurology at [address] [address] Cathy Salazar, PRODUCT MARKETING CONSULTANT [facility] [place] [address] Parkinsonism, unspecified Parkinsonism type Social History Tobacco Use Types Packs/Day Years Used Date Smoking Tobacco: Never Smokeless Tobacco: Never Comments:smokes marijuana Sex and Gender Information Value Date Recorded Sex Assigned at Not on file Gender Identity Not on file Sexual Orientation Not on file documented as of this encounter Progress Notes * Cathy Salazar, OPAL - 12/12/2023 11:15 AM EDT Ainta Santiago here for for skin biopsy for question of small fiber neuropathy and/or synucleinopathy. Patient identified. Consent form signed. Timeout conducted to verify correct procedure and correct patient and all relevant clinical information. We reviewed the risks of infection, bleeding and painprior to the procedure, and all the patient's questions were answered completely and satisfactorily. After informed consent was obtained the patient was prepped and draped in aseptic fashion. Sites were selected for biopsy at the L distal calf, L cervical paraspinal area, and the L proximal thigh. 2-3 cc of 1% lidocaine with epi was injected at each site to achieve adequate cutaneus anesthesia. With a 3mm skin punch, the specimens were acquired without complication. Hemostasis was obtained with pressure. The sites were dressed and the patient was given detailed aftercare instructions in addition to supplies. The patient was instructed to keep sites dry for 48 hours, followed by a 1 week (7 days) period of not immersing in water. Patient instructed re: contact indications. Samples put in preservative and taken to lab for processing. Patient tolerated the procedure with no obvious complication. AALIYAH Crabtree Personal Pager #[phone] Department of Neurology [facility] [place] [phone] documented in this encounter Plan of Treatment Not on file documented as of this encounter Visit Diagnoses Diagnosis Parkinsonism, unspecified Parkinsonism type documented in this encounter Care Teams Window Repairer Relationship Specialty Start Date End Date Komal Zaidi MD [address] [place] [address] PCP - General Family Medicine 10/05/23 documented as of this encounter
--- OUTSIDE RECORDS SUMMARY | 2024-08-03 14:21 | XMS_ITS | Encounter Summary ---
[place] [address] Care Team Providers Care Agricultural Engineering Technologist Name Role Phone Komal Zaidi MD Primary Care Provider [phone] Encounter Details Date Type Department Care Team (Late st Contact Info) Description 09/28/2023 Telephone [place] [phone] Meera De León Social History Tobacco Use Types Packs/Day Years [...] on filedocumented in this encounter Care Teams Agricultural Engineering Technologist Relationship Specialty Start Date End Date Komal Zaidi MD [address] [place] [address] PCP - General Family Medicine 10/05/23 documented as of this encounter
--- OUTSIDE RECORDS SUMMARY | 2024-08-03 14:21 | XMS_ITS | Encounter Summary ---
[place] [address] Care Team Providers Care Pricing Consultant Name Role Phone Komal Zaidi MD Primary Care Provider [phone] Encounter Details Date Type Department Care Team (Late st Contact Info) Description 02/27/2024 External [place] [address] Subha Lucio MD [facility] [place] [address] Social History Tobacco Use Types Packs/Day Years [...] on filedocumented in this encounter Care Teams Pricing Consultant Relationship Specialty Start Date End Date Komal Zaidi MD [address] [place] [address] PCP - General Family Medicine 10/05/23 documented as of this encounter
--- OUTSIDE RECORDS SUMMARY | 2024-08-03 14:21 | XMS_ITS | Encounter Summary ---
Author Organization [facility] Address [address] [place] [address] Care Team Providers Care Forensics Team Director Name Role Phone Unavailable Primary Care Provider Unavailabl e Encounter Details Date Type Department Care Team (Late st Contact Info) Description 02/01/2023 Lab Requisition [facility] Pathology & Laboratory Medicine - [facility] [address] [place] [address] Outr Resulting Lab, Provider Social History Tobacco [...] Procedure Name Priority Date/Time Associated Diagnosis Comments LYME AB Routine 02/01/2023 10:25 EDT documented in this encounter Results * LYME AB (02/01/2023 10:25 EDT) Lyme Ab Negative Negative 02/02/2023 10:15 EDT [facility] Blood VENOUS BLOOD / Unknown 02/01/2023 10:25 EDT 02/01/2023 21:25 EDT us Provider Outr Resulting Lab IMMUNOLOGY AND SEROL OGY ORDERABLES Final Result [facility] [address] [place] [address] documented in this encounter Visit Diagnoses Not on filedocumented in this encounter
--- OUTSIDE RECORDS SUMMARY | 2024-08-03 14:21 | XMS_ITS | Encounter Summary ---
Author Organization [facility] Address [address] [place] [address] Care Team Providers Care Farm Machinery Engine Mechanic Name Role Phone Unavailable Primary Care Provider Unavailabl e Encounter Details Date Type Department Care Team (Late st Contact Info) Description 06/24/2023 Lab Requisition [facility] Pathology & Laboratory Medicine - [facility] [address] [place] [address] Outr Resulting Lab, Provider Social History Tobacco [...] Procedure Name Priority Date/Time Associated Diagnosis Comments PTH INTACT Routine 06/24/2023 9:58 EST documented in this encounter Results * PTH INTACT (06/24/2023 9:58 EST) Intact PTH 34 19 - 88 pg/mL 06/24/2023 20:59 EST [facility] Blood VENOUS BLOOD / Unknown 06/24/2023 9:58 EST 06/24/2023 17:30 EST us Provider Outr Resulting Lab CHEMISTRY & BLOOD GA S ORDERABLES Final Result [facility] [address] [place] [address] documented in this encounter Visit Diagnoses Not on filedocumented in this encounter
--- OUTSIDE RECORDS SUMMARY | 2024-08-03 14:21 | XMS_ITS | Encounter Summary ---
[place] [address] Care Team Providers Care Fiberglass Product Tester Name Role Phone Alireza Peres MD Primary Care Provider [phone] Encounter Details Date Type Department Care Team (Latest Contact Info) Description 08/12/2023 Travel Social History Tobacco Use Types Packs/Day [...] on filedocumented in this encounter Care Teams Fiberglass Product Tester Relationship Specialty Start Date End Date Alireza Peres MD [address] [place] [address] PCP - General Internal Medicine 01/27/21 10/04/23 documented as of this encounter
--- OUTSIDE RECORDS SUMMARY | 2024-08-03 14:21 | XMS_ITS | Encounter Summary ---
Author Organization [facility] Address [facility] [place] [address] Care Team Providers Care Inventory Transcriber Name Role Phone Alireza Peres MD Primary Care Provider [phone] Encounter Details Date Type Department Care Team (Latest Contact Info) Description 07/08/2021 9:55 PM EST - 07/08/2021 11:59 PM EST Hospital [place] [address] Discharge Disposition: Home Social History Tobacco Use Types Packs/Day Years Used Date Smoking Tobacco: Never Smokeless Tobacco: Never Comments:smokes marijuana Sex and Gender Information Value Date Recorded Sex Assigned at Not on file Gender Identity Not on file Sexual Orientation Not on file documented as of this encounter Medications at Time of Discharge Medication Sig Dispensed Refills Start Date End Date lisinopriL (Zestril) 10 mg Tablet Take 20 mg by mouth daily. documented as of this encounter Plan of Treatment Not on file documented as of this encounter Procedures Procedure Name Priority Date/Time Associated Diagnosis Comments SURGICAL PATHOLOGY REPORT Routine 07/08/2021 9:50 AM EST documented in this encounter Results * Surgical Pathology Report (07/08/2021 9:50 AM EST) Final Diagnosis [id number] ? Location: [facility] The signing pathologist has (i) examined the relevant preparation(s) for the specimen(s) and (ii) rendered or confirmed the diagnosis(es). . ?Surgical Pathology DIAGNOSIS A - Transverse Colon Polyp x 5, biopsy: - ??Fragments of sessile serrated polyp/adenoma(s ). B - Sigmoid Polyp, biopsy: - Colonic mucosa with features of mucosal prolapse. - ??Multiple levels examined. Electronically signed by: ?Reji COX PhD, Pamela Verified: ??07/16/2021 12:02 ??Pathologist Performed at: ??-[facility] [place] Dept. [place]ology, [place], [place] SPECIMEN(S) SUBMITTED A - Transverse Colon Polyp x 5, biopsy B - Sigmoid Polyp, biopsy Referring Identifier: ?(not provided) Report to: Alireza Peres CLINICAL INFORMATION Hx of colon cancer; multiple tiny polyps SPECIMEN PROCESSING A - Labeled/Fixativ e: Transverse colon polyps x5, formalin. Quantity/Size: Five, ranging from 0.2-0.5 cm. Tissue Description: Soft, marinelli tissues. Sections/Proces sing: Submitted en toto ??in 1 cassette labeled A1. B - Labeled/Fixativ e: Sigmoid polyp, formalin. Quantity/Size: Single, 0.4 cm. Tissue Description: Soft, marinelli tissue. Sections/Proces sing: Submitted en toto ??in 1 cassette labeled B1. ??mnd 07/16/2021 12:[address] [facility] GI Biopsy 07/08/2021 9:50 AM EST 07/08/2021 9:50 AM EST GI Biopsy 07/08/2021 9:50 AM EST 07/08/2021 9:50 AM EST Patricio Jane DO PATHOLOGY/CYT OLOGY ORDERABLES [facility] [place] [address] documented in this encounter Visit Diagnoses Not on filedocumented in this encounter Care Teams Inventory Transcriber Relationship Specialty Start Date End Date Alireza Peres MD [address] [place] [address] PCP - General Internal Medicine 01/27/21 10/04/23 documented as of this encounter
--- OUTSIDE RECORDS SUMMARY | 2024-08-03 14:21 | XMS_ITS | Encounter Summary ---
[place] [address] Care Team Providers Care Senior Benefits Analyst Name Role Phone Alireza Peres MD Primary Care Provider [phone] Encounter Details Date Type Department Care Team (Late st Contact Info) Description 07/02/2022 2:00 PM EST TH Visit (TeleHealth) Hematology/Oncology at [address] [phone] Windy Samuels, [address] HEMATOLOGY AND ONCOLOGY [place], [place] [id number] Malignant neoplasm of ascending colon Social History Tobacco Use Types Packs/Day Years Used Date Smoking Tobacco: Never Smokeless Tobacco: Never Comments:smokes marijuana Sex and Gender Information Value Date Recorded Sex Assigned at Not on file Gender Identity Not on file Sexual Orientation Not on file documented as of this encounter Progress Notes * Windy Samuels, OPAL - 07/02/2022 2:00 PM EST Subjective Patient ID: Anita Santiago is a 71 y.o. female. HPI Patient ID: Anita Santiago is a 70 y.o. female. Problem List: 1. Colon cancer, pT3a, pN2a Received care in OR. Medical Oncologist - Anjel Mirza at [place] [address] [place] [address] ; A. Presented with iron deficiency anemia [...] 11/2018. ?? D. Most recent colonoscopy fall - negative. F/u recommended in 2 years. [...] metastatic disease in the abdomen or pelvis. ?? 2. HTN 3. Osteoarthritis S/p right bilateral SILVIA 4. 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 (See history as summarized above.) She was treated with surgery (ascending colectomy) and 12 cycles of Folfox. Due to the weather, this visit was made a telephone visit. Anita just returned from a trip to [place] which had previously been postponed due to COVID. She had great time. She is feeling well. Her energy is good. Her appetite is good. Her bowels are overall regular - shenotes some constipation after her travels, but this is normal for her and she is using a psyllium product to help. Anita continues to play her flute and mandolin with friends. She reports the only residual neuropathy from [...] Hematological: Negative. Psychiatric/Behavioral: Negative. Objective Physical Exam Neurological: Mental Status: She is oriented to person, place, and time. Psychiatric: Mood and Affect: Mood normal. Thought Content: Thought content normal. There were no vitals taken for this visit. LABS 06/24/22: WBC 6.44; ANC 3100; H/H 13.2/40.3; PLT 217,000; BUN 13; CREAT 1.0; BILI 0.4; lytes and LFTs otherwise unremarkable. CEA 06/24/22: 2.6 08/28/21: 2.2 05/12/21: 2.5 Assessment & Plan Anita Santiago is a 71 yo female diagnosed 03/28 with adenocarcinoma of the ascending colon. (See history as summarized above.) She was treated with surgery (ascending colectomy) and 12 cycles of Folfox. Anita has requested this visit be via telephone due to the inclement weather. CBC, CMP, and CEA reviewed with Anita. CT scan results reviewed as stable, no evidence of metastatic disease. Lung nodules being observed are also stable. Anita is doing well and has no clinical signs of cancer recurrence. Her most recent colonoscopy was1 year ago, with a recommended repeat in 3 years. She is having some reservations about this, and considering a repeat at 2 years. We discussed that the negative scan/labs are reassuring signs. She is also going to discuss this with her PCP at her upcoming appointment. She will RTC with labs in 6 months, her next surveillance scan will be planned for 1 year. We remain available to be seen sooner if anything changes. Approximately 20 minutes spent on the telephone for this encounter. documented in this encounter Plan of Treatment Not on file documented as of this encounter Visit Diagnoses Diagnosis Malignant neoplasm of ascending colon documented in this encounter Care Teams Senior Benefits Analyst Relationship Specialty Start Date End Date Alireza Peres MD [address] [place] [address] PCP - General Internal Medicine 01/27/21 10/04/23 documented as of this encounter
--- OUTSIDE RECORDS SUMMARY | 2024-08-03 14:21 | XMS_ITS | Encounter Summary ---
Author Organization [place] [id number] Care Team Providers Care Operator And Truck Driver Name Role Phone Alireza Peres MD Primary Care Provider [phone] Encounter Details Date Type Department Care Team (Late st Contact Info) Description 07/01/2021 11:22 AM EST - 07/01/2021 11:59 PM EST Hospital Encounter [facility] [address] [place] [address] Patricio Jane, DO [address] [place] [address] Discharge Disposition: Home Social History Tobacco Use [...] Procedure Name Priority Date/Time Associated Diagnosis Comments COVID-19 PCR Routine 07/01/2021 12:01 AM EST documented in this encounter Results * COVID-19 PCR (07/01/2021 12:01 AM EST) SARS-CoV-[address] Not Detected [facility] Comment: This result should be interpreted in combination with the clinical observations, patient history and epidemiological information in making a final diagnosis. For testing of asymptomatic individuals, assay performance characteristics and clinical utility have not been evaluated. Testing for SARS-CoV-2 (Severe acute respiratory syndrome coronavirus 2, formerly known as 2019 novel coronavirus or 2019-nCoV) to aid in the diagnosis of COVID-19 is performed using the [employer] m SARS-CoV-2 Assay as authorized by the FDA Emergency Use Authorization (EUA). This EUA assay is intended for In-vitro Diagnostic (IVD) use with respiratory specimens such as nasopharyngeal swabs collected from individuals during the acute phase of infection. This assay is performed based on the instructions for use provided by [employer] and additional guidance provided by CDC and FDA. Testing is performed in the [facility] within the Department of Pathology and Laboratory Medicine at [facility], certified under the Clinical Laboratory Improvement Amendments of 1988 (CLIA), 42 U.S.C. 263a, to perform high complexity tests. Assay performance has been verified according to clinical laboratory regulatory requirements for use with specimens collected from individuals suspected of COVID-19. Test results are provided above. A result of Not Detected indicates that the viral RNA target is not present above the limit of detection, but does not preclude SARS-CoV-2 infection. False negative results may occur if a specimen is improperly collected, transported or handled; if amplification inhibitors are present; or if inadequate numbers of viral particles are present in the specimen. When a diagnostic test is negative, the possibility of a false negative result should be considered in the context of a patient's recent exposures and the presence of clinical signs and symptoms consistent with COVID-19. A result of Detected indicates that RNA from SARS-CoV-2 was detected and the patient is infected. As required or requested by public health authorities, positive specimens may be sent for additional testing. Positive and negative predictive values for this test are highly dependent on disease prevalence. A result of Invalid indicates that neither the viral RNA targets nor the internal control target was detected. An invalid result suggests the presence of inhibitors. Recollection and re-testing is recommended in the case of an invalid result. CDC COVID-19 criteria for testing on human specimens and clinical management guidance information are available at the CDC Coronavirus Disease 2019 (COVID-19) webpage under Information for Healthcare Professionals (https://www.cdc.gov/coronavirus/2019-ncov/hcp/index.html) Additional information about this and other EUA tests can be found in provider and patient fact sheets at the following FDA website: https://www.fda.gov/medical-devices/xlwymlwulwa-dfpnkgu-6829-lhdcc-46-kznxnhyws- use-a ungvijsjpllzd-bkxlyew-qbklrcs/jwikb-rhhyyqwjsse-stvu SARS-CoV-2 RNA Source [employer] Swab [facility] Nasopharyngeal Swab 07/01/20 12:01 AM EST 07/01/2021 9:35 PM EST Narrative Resulting Agency Comment Spec In Lab Patriico Jane DO MOLECULAR ORD ERABLES [facility] [place] [address] documented in this encounter Visit Diagnoses Not on filedocumented in this encounter Care Teams Operator And Truck Driver Relationship Specialty Start Date End Date Alireza Peres MD [address] [place] [address] PCP - General Internal Medicine 01/27/21 10/04/23 documented as of this encounter
--- OUTSIDE RECORDS SUMMARY | 2024-08-03 14:21 | XMS_ITS | Referral Summary ---
Author Organization [facility] Address [address] [place] [address] Care Team Providers Care Explosive Ordnance Disposal Specialist Name Role Phone Unavailable Primary Care Provider Unavailabl e Social History Tobacco Use Types Packs/Day Years Used Date Smoking Tobacco: Never Assessed Comments Unknown Sex and Gender Information Value Date Recorded Sex Assigned at Not on file Legal Sex Female 12:48 EDT Gender Identity Not on file Sexual Orientation Not on file Plan of Treatment Not on file
--- OUTSIDE RECORDS SUMMARY | 2024-08-03 14:22 | XMS_ITS | Encounter Summary ---
Author Organization [facility] Address [facility] [place] [address] Care Team Providers Care Can Stacker Name Role Phone Alireza Peres MD Primary Care Provider Reason for Visit * Consultation (Routine) - Closed Specialty Diagnoses / Procedures Referred By Contrichie t Referred To Contact Hematology and Oncology Diagnoses Malignant neoplasm of ascending colon CARCINOMA, ASCENDING COLON Procedures TREATMENT OPTIONS Alireza Peres MD [address] [place] [address] St [facility] Onc Office [address] [place] [phone] Referral ID Status Reason Start Date Expiration Date V isits Requested Visits Authorized [id number] Closed PCP Updated and/or Approved 12/22/2020 12/22/2021 12 12 Encounter Details Date Type Department Care Team (Late st Contact Info) Description 04/17/2021 11:00 AM EDT Office Visit Hematology/Oncology at [address] [phone] Malcom Ding MD [facility] [place] [address] Maria M Neff APRN [address] [place] [address] DR [place]OLOG[place] [address] Malignant neoplasm of ascending colon Social History Tobacco Use Types Packs/Day Years Used Date Smoking Tobacco: Never Smokeless Tobacco: Never Sex and Gender Information Value Date Recorded Sex Assigned at Not on file Gender Identity Not on file Sexual Orientation Not on file documented as of this encounter Last Filed Vital Signs Vital Sign Reading Time Taken Comments Blood Pressure 152/85 04/17/2021 11:05 AM EDT Pulse 87 04/17/2021 11:05 AM EDT Temperature 36.5 ??C (97.7 ??F) 04/17/2021 1 1:05 AM EDT Respiratory Rate 16 04/17/2021 11:0 5 AM EDT Oxygen Saturation 100% 04/17/2021 11: 05 AM EDT Inhaled Oxygen Concentration - - Weight 59.8 kg (131 lb 12.8 oz) 021 11:05 AM EDT Height 152.8 cm (5' 0.16) 04/17/2021 1 1:05 AM EDT Body Mass Index 25.61 04/17/2021 11:05 AM EDT documented in this encounter Progress Notes * Malcom Ding MD - 04/17/2021 11:00 AM EDT Subjective: Patient ID: Anita Santiago is a 70 y.o. female. Problem List: 1. Colon cancer (outside records not available, history is from pt) Dx - February or March 2018. Cancer in ascending colon. Received care in [place]. Medical Oncologist - Anjel Mirza at [place] [address] [place] [address] ; Fasx: [phone] Pre-op CEA - > 26 S/p right hemicolectomy. Stage III disease with LN involvement Post-operative chemotherapy - Folfox x 12 cycles, last given in 11/2018. Most recent CT scan was in 03/2020 - per pt had a spot on her lung. Most recent colonoscopy fall of 2018 - negative. F/u recommended in 2 years. A referral was made toDr. Jane and she is going to be seen end of April 2021. CEA in 09/2020 - <5 2. HTN 3. Osteoarthritis S/p right SILVIA 01/2021 HPI Anita Santiago is referred for evaluation and management of colon cancer. The history is summarized above. Anita is by herself in clinic today. She is living with her brother in [place] relocated to this area from [place]. Her PCP is Dr. Peres. She is feeling well overall. Her appetite is pretty good. Her weight is stable. Her energy level is good. She walks daily with her dog. She has had some problems with constipation. She takes psyllium every other day. With this, her bowels are pretty regular. No melena or BRBPR. 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 She takes gabapentin. She uses it when she is going to play music and it does seem to help. No symptoms of neuropathy in her fingers and toes. Soc Hx: Lives in [place], [place] Tob - Never Etoh - rare Retired, former elementary secretary Fam Hx: Father - at age 84 - lung cancer, emphysema. Smoked Mother - at -age 85 - possible CVA or [place] Sibs - one half brother - 90 yo and diagnosed with lung cancer met to brain; One full brother (Rafa) in good health Children - None We discussed screening colonoscopy for Rafa and recommended that. She will pass that on. Review of Systems Constitutional: Negative for activity change, appetite change, fatigue, fever and unexpected weightchange. HENT: Negative. Respiratory: Negative. Cardiovascular: Negative. Gastrointestinal: Negative. Genitourinary: Negative. Musculoskeletal: Negative. Skin: Negative. Neurological: Positive for numbness (lips). Hematological: Negative. Psychiatric/Behavioral: Negative. Objective: Physical Exam Vitals reviewed. Constitutional: General: She is not in acute distress. HENT: Head: Normocephalic and atraumatic. Mouth/Throat: Pharynx: Oropharynx is clear. No oropharyngeal exudate. Cardiovascular: Rate and Rhythm: Normal rate and regular rhythm. Pulmonary: Effort: Pulmonary effort is normal. No respiratory distress. Breath sounds: No wheezing or rales. Chest: Breasts: Right: No supraclavicular adenopathy. Left: No supraclavicular adenopathy. Abdominal: General: There is no distension. Palpations: There is no mass. Tenderness: There is no abdominal tenderness. There is no guarding. Musculoskeletal: General: No swelling. Lymphadenopathy: Cervical: No cervical adenopathy. Upper Body: Right upper body: No supraclavicular adenopathy. Left upper body: No supraclavicular adenopathy. Skin: General: Skin is warm and dry. Findings: No rash. Neurological: General: No focal deficit present. Mental Status: She is alert. Coordination: Coordination normal. Psychiatric: Mood and Affect: Mood normal. Behavior: Behavior normal. CEA: Pre-op > 26 (per pt) Assessment and Plan: Anita Santiago is 70 yo, seen for evaluation and management of colon cancer. History of colon cancer, received care in [place]. Will plan to obtain outside records, the following history is provided by pt. Dx'd in February or March of 2018. Tumor in ascending colon. Pre-op CEA - > 26 Underwent resection - LN(s) involved, negative margins Adjuvant chemotherapy with Folfox x 6 months, completed in 11/2018 Most recent colonoscopy in fall 2018 - negative, f/u recommended in two years Most recent CT - around 03/2020 - lung nodule seen, though to be benign Clinically, she appears to be doing well. We talked about f/u and I recommended a repeat CT scan asit has been over a year since the last one. We reviewed the rationale for that - earlier detection of metastatic disease may allow for potentially curative resection. She is in agreement with going ahead with that. We will arrange for the CT and labs, including CEA and see her back afterward, sometime in the next few weeks. We will request outside images for comparison. She has been referred to Dr. Jane for colonscopy and is due to be seen later this week. documented in this encounter Plan of Treatment Not on file documented as of this encounter Visit Diagnoses Diagnosis Malignant neoplasm of ascending colon documented in this encounter Care Teams Can Stacker Relationship Specialty Start Date End Date Alireza Peres MD [address] [place] [address] PCP - General Internal Medicine 01/27/21 10/04/23 documented as of this encounter
--- OUTSIDE RECORDS SUMMARY | 2024-08-03 14:22 | XMS_ITS | Encounter Summary ---
Author Organization [facility] [place] [address] Care Team Providers Care Electronic Warfare Technical Name Role Phone Unavailable Primary Care Provider Unavailabl e Encounter Details Date Type Department Care Team (Late st Contact Info) Description 12/19/2018 12:05 AM EDT Ancillary Procedure Radiology Library at [facility] [place] [phone] Alireza Peres MD [address] [place] [address] Social History Tobacco Use Types Packs/Day Years Used Date Smoking Tobacco: Never Assessed Sex and Gender Information Value Date Recorded Sex Assigned at Not on file Gender Identity Not on file Sexual Orientation Not on file documented as of this encounter Plan of Treatment Not on file documented as of this encounter Procedures Procedure Name Priority Date/Time Associated Diagnosis Comments FILM LIBRARY STORAGE ONLY MR HEAD Routine 12/19/2018 12:05 AM EDT documented in this encounter Results * Film Library- Storage Only MR Head (12/19/2018 12:05 AM EDT) Narrative REI - 04/24/2021 11:07 PM EDT This exam is auto-finalizing. It's purpose is for storage only. Alireza Peres MD IMG FILM LIBRARY ORD ERABLES [facility] [place] documented in this encounter Visit Diagnoses Not on filedocumented in this encounter
--- OUTSIDE RECORDS SUMMARY | 2024-08-03 14:22 | XMS_ITS | Encounter Summary ---
Author Organization [facility] [place] [address] Care Team Providers Care Advertisement Distributor Name Role Phone Unavailable Primary Care Provider Unavailabl e Encounter Details Date Type Department Care Team (Late st Contact Info) Description 12/19/2018 Ancillary Procedure Radiology Library at [facility] [place] [place] [phone] Alireza Peres MD [address] [place] [address] Social History Tobacco Use Types Packs/Day Years [...] STORAGE ONLY CT CHEST ABDOMEN PELVIS Routine 12/19/2018 12:00 AM EDT documented in this encounter Results * Film Library- Storage Only CT Chest Abdomen Pelvis (12/19/2018 12:00 AM EDT) Narrative [facility] - 04/24/2021 11:07 PM EDT This exam is auto-finalizing. It's purpose is for storage only. Alireza Peres MD IMG FILM LIBRARY ORD ERABLES [facility] [place] documented in this encounter Visit Diagnoses Not on filedocumented in this encounter
--- OUTSIDE RECORDS SUMMARY | 2024-08-03 14:22 | XMS_ITS | Encounter Summary ---
Author Organization [facility] [place] [address] Care Team Providers Care Collection Teller Name Role Phone Alireza Peres MD Primary Care Provider Encounter Details Date Type Department Care Team (Late st Contact Info) Description 05/12/2021 Ancillary Procedure Radiology Library at [facility] [place] [address] Alireza Peres MD [address] [place], [place] [id number] Social History Tobacco Use Types Packs/Day Years [...] STORAGE ONLY CT CHEST ABDOMEN PELVIS Routine 05/12/2021 12:00 AM EDT documented in this encounter Results * Film Library- Storage Only CT Chest Abdomen Pelvis (05/12/2021 12:00 AM EDT) Narrative [facility] - 05/13/2021 9:49 AM EDT This exam is auto-finalizing. It's purpose is for storage only. Alireza Peres MD IMG FILM LIBRARY ORD ERABLES [place], [place] documented in this encounter Visit Diagnoses Not on filedocumented in this encounter Care Teams Collection Teller Relationship Specialty Start Date End Date Alireza Peres MD [address] [place] [address] PCP - General Internal Medicine 01/27/21 10/04/23 documented as of this encounter
--- OUTSIDE RECORDS SUMMARY | 2024-08-03 14:22 | XMS_ITS | Encounter Summary ---
Author Organization [facility] Address [facility] [place]ess[place] [address] Care Team Providers Care Physical Sciences Instructor Name Role Phone Alireza Peres MD Primary Care Provider [phone] Encounter Details Date Type Department Care Team (Late st Contact Info) Description 05/15/2021 2:00 PM EDT Office Visit Hematology/Oncology at [address] [phone] Malcom Ding MD [facility] [place] [address] Maria M Neff, STRAP CUTTING MACHINE OPERATOR [address] [place] [address] DR HEMATOLOGY ONCOLOGY [place], [place] [id number] Malignant neoplasm of ascending colon Social History Tobacco Use Types Packs/Day Years Used Date Smoking Tobacco: Never Smokeless Tobacco: Never Comments:smokes marijuana Sex and Gender Information Value Date Recorded Sex Assigned at Not on file Gender Identity Not on file Sexual Orientation Not on file documented as of this encounter Last Filed Vital Signs Vital Sign Reading Time Taken Comments Blood Pressure 153/89 05/15/2021 1:58 PM EDT Pulse 68 05/15/2021 1:58 PM EDT Temperature 36.3 ??C (97.3 ??F) 05/15/2021 1:58 PM ED T Respiratory Rate 16 05/15/2021 1:58 PM EDT Oxygen Saturation 99% 05/15/2021 1:58 PM EDT Inhaled Oxygen Concentration - - Weight 59.9 kg (132 lb) 05/15/2021 1:58 PM EDT Height 152.8 cm (5' 0.16) 05/15/2021 1:58 PM ED T Body Mass Index 25.65 05/15/2021 1:58 PM EDT documented in this encounter Progress Notes * Malcom Ding MD - 05/15/2021 2:00 PM EDT Subjective: Patient ID: Anita Santiago is a 70 y.o. female. Problem List: 1. Colon cancer, pT3a, pN2a Received care in [place]. Medical Oncologist - Anjel Mirza at [facility] [address] [place] [address] [place] [address] ; A. Presented with iron deficiency anemia [...] 12 cycles, last given in 11/2018. D. Most recent colonoscopy fall - negative. F/u recommended in 2 years. A referral was madeto Dr. Jane and she is going to be seen end of April 2021. CEA in 09/2020 - <[address] [...] lesions identified. There are bilateral hip prostheses. 2. HTN 3. Osteoarthritis S/p right bilateral SILVIA 4. HD in 20s MOPP followed by pola LE Anita Santiago is seen in f/u of colon cancer. The history is summarized above. Anita is by herself in clinic today. She continues to feel well. Her appetite is pretty good and her weight is stable compared with our last visit. Her energy level is good. She walks daily with her dog. She has had some problems with constipation. She takes psyllium every other day. With this, herbowels are pretty regular. No melena or BRBPR. 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 She takes gabapentin. She uses it when she is going to play music and it does seem to help. No symptoms of neuropathy in her fingers and toes. Soc Hx: Lives in [place], [place] with her brother Tob - Never Etoh - rare Retired, former elementary school teacher's aide Fam Hx: Father - at age 84 - lung cancer, emphysema. Smoked Mother - at -age 85 - possible CVA or [place] Sibs - one half brother - 90 [...] HENT: Head: Normocephalic and atraumatic. Mouth/Throat: Pharynx: No oropharyngeal exudate. Cardiovascular: Rate and Rhythm: Normal rate. Pulmonary: Effort: No respiratory distress. Abdominal: General: There is no distension. Musculoskeletal: General: No swelling. Skin: General: Skin is warm and dry. Findings: No rash. Neurological: General: No focal deficit present. Mental Status: She is alert. Coordination: Coordination normal. Psychiatric: Mood and Affect: Mood normal. Behavior: Behavior normal. Labs: WBC/ANC - 5., Hgb/Hct - 13/40.2, Plts - 185,000. BUN/Cr - 15/0.7. Na - 148, Alk phos -132. Lytes and LFTs o/w unremarkable CEA: 05/12/21 2.5 03/17/19 4.2 12/04/18 6.7 11/20/18 6.3 10/22/18 6.9 10/08/18 5.5 09/17/18 6 08/21/18 4.1 07/01/18 4.3 06/09/18 5.6 05/14/18 5.2 04/24/18 8.9 02/2018 26.7 Assessment and Plan: Anita Santiago is 70 yo, seen for evaluation and management of stage III colon cancer. History of colon cancer, received care in [place]. Will plan to obtain outside records, the following history is provided by pt. Dx'd in February,. Tumor in ascending colon. Pre-op CEA - 26.7; CT negative for metastatic disease Underwent resection - Los grade adenocarcinoma, pT3a, pN2a Adjuvant chemotherapy with Folfox x 6 months, completed in 11/2018 Most recent colonoscopy in fall 2018 - negative, f/u recommended in two years Most recent CT - 05/12/21 - no evidence of metastatic disease Clinically and radiologically, she appears to be doing well with no evidence of disease recurrence. She saw Dr. Jane recently. He is planning a colonoscopy in late 06/2021. We will plan to see her in 4 months with labs. We will plan the next CT in a year. documented in this encounter Plan of Treatment Not on file documented as of this encounter Visit Diagnoses Diagnosis Malignant neoplasm of ascending colon documented in this encounter Care Teams Physical Sciences Instructor Relationship Specialty Start Date End Date Alireza Peres MD [address] [place] [address] PCP - General Internal Medicine 01/27/21 10/04/23 documented as of this encounter
--- OUTSIDE RECORDS SUMMARY | 2024-08-03 14:22 | XMS_ITS | Encounter Summary ---
[place] [address] Care Team Providers Care Director Of Casework Services Name Role Phone Unavailable Primary Care Provider Unavailabl e Encounter Details Date Type Department Care Team (Late st Contact Info) Description 12/24/2020 Abstract [place]ology [place] [phone] Lala Patton Social History Tobacco Use Types Packs/Day Years [...]
--- OUTSIDE RECORDS SUMMARY | 2024-08-03 14:22 | XMS_ITS | Encounter Summary ---
[place] [address] Care Team Providers Care Sawmill Tally Clerk Name Role Phone Unavailable Primary Care Provider Unavailabl e Encounter Details Date Type Department Care Team (Late st Contact Info) Description 12/23/2020 Abstract Hematology/Oncology at [address] [phone] Princess Killian Social History Tobacco Use Types Packs/Day Years [...]
--- OUTSIDE RECORDS SUMMARY | 2024-08-03 14:22 | XMS_ITS | Encounter Summary ---
[place] [address] Care Team Providers Care Structural Iron Erector Name Role Phone Unavailable Primary Care Provider Unavailabl e Encounter Details Date Type Department Care Team (Late st Contact Info) Description 12/23/2020 Abstract Hematology/Oncology at [address] [phone] Princess Killian Social History Tobacco Use Types [...]
[2024-08-03 14:55] LABS: Anion Gap 7.3 mmol/L (3-11); BUN 18 mg/dL (7-18); CO2 28.7 mmol/L (21.0-32.0); CREATININE 0.9 mg/dL (0.55-1.02); Calcium 9.4 mg/dL (8.5-10.1); Calculated LDL 130 mg/dL (<100); Chloride 108 mmol/L (98-107); Cholesterol 210 mg/dL (<200); Estimated GFR 67.08 (mL/min/1.73m2); Glucose 126 mg/dL (74-106); HDL Cholesterol 68 mg/dL (40-60); Potassium 4.5 mmol/L (3.5-5.1); Sodium 144 mmol/L (136-145); Triglyceride 64 mg/dL (<150)
[2024-08-03 23:54] LABS: Hepatitis C Ab w Rflx HCV PCR Negative (Negative)
== END 2024-08-03 14:18 | disposition home or self-care (01) ==
LOC: NCHCN 14:17
PROVIDERS: PCP Family Medicine; Visit Provider Family Medicine
DX: I10 Essential (primary) hypertension (principal); Z13.220 Encounter for screening for lipoid disorders; Z11.59 Encounter for screening for other viral diseases
CPT/HCPCS: 80048; 80061; 86803

== ENCOUNTER → 2024-08-09 10:40 | Outpatient (BNVA) | payer MEDICARE, SELFPAY | PROVIDERS: PCP Family Medicine; Referring Provider Family Medicine; Visit Provider Psychiatry & Neurology Neurology | DX: G20.A1 Parkinson's disease without dyskinesia, without mention of fluctuations (principal); G47.00 Insomnia, unspecified; K59.00 Constipation, unspecified; R13.10 Dysphagia, unspecified; I10 Essential (primary) hypertension | CPT/HCPCS: 99214 ==

== ENCOUNTER 2024-12-17 01:48 | Outpatient (CLI) | payer MEDICARE, SELFPAY ==
--- NOTE | 2024-12-17 | DI.DEXA_ITS ---
Exam(s) XR DEXA BONE DENSITY W/WO KELLY EXAM: XR DEXA BONE DENSITY W/WO KELLY CLINICAL HISTORY: Asymptomatic menopausal state, Z78.0 TECHNIQUE: Routine DEXA evaluation of the lumbar spine, hip, or forearm. COMPARISON: No exams were available for comparison FINDINGS: Performed on a Hologic unit. Lateral image: No compression fracture evident. Lumbar Spine total T-score: -0.9 which is in normal range. Hip total T-score:Not done because of bilateral hip prostheses. Forearm total T-score: -3.9 which is osteoporosis range IMPRESSION: Bone mineral density measures in the osteoporosis range for the wrist-forearm bones. Fracture risk i s high at this level. Bone mineral density measures in the normal range for the lumbar spine. Hips not done due to bilateral hip prostheses. Note: Any spine fracture indicates 5x risk for subsequent spine fracture and 2x risk for subsequent h ip fracture. World Health Organization criteria for BMD interpretation classify patients: Normal...... T- Score at or above -1.0 Osteopenic... T- Score between -1.0 and -2.5 Osteoporosis... T-Score at or below -2.5
== END 2024-12-17 02:08 ==
LOC: DI 01:48
PROVIDERS: PCP Family Medicine; Visit Provider Family Medicine
DX: M81.0 Age-related osteoporosis without current pathological fracture (principal); Z78.0 Asymptomatic menopausal state
CPT/HCPCS: 77080

== ENCOUNTER 2025-01-28 14:00 | Outpatient (REF) | payer MEDICARE, SELFPAY ==
[2025-01-28 15:46] LABS: Vitamin D 25 Total 50 ng/mL (30-100)
== END 2025-01-28 14:01 | disposition home or self-care (01) ==
LOC: NCHCN 14:00
PROVIDERS: PCP Family Medicine; Visit Provider Family Medicine
DX: M81.0 Age-related osteoporosis without current pathological fracture (principal)
CPT/HCPCS: 82306

== ENCOUNTER → 2025-02-14 12:27 | Outpatient (BNVA) | payer MEDICARE, SELFPAY | PROVIDERS: PCP Family Medicine; Referring Provider Family Medicine; Visit Provider Psychiatry & Neurology Neurology | DX: G20.A1 Parkinson's disease without dyskinesia, without mention of fluctuations (principal); G47.00 Insomnia, unspecified; K59.00 Constipation, unspecified; R13.10 Dysphagia, unspecified; I10 Essential (primary) hypertension | CPT/HCPCS: 99214 ==

== ENCOUNTER 2025-02-20 01:30 | Outpatient (CLI) | payer MEDICARE, SELFPAY ==
--- NOTE | 2025-02-20 | DI.MAMMO_ITS ---
Exam(s) MAMMO SCREENING EXAM: MAMMO SCREENING CLINICAL HISTORY: Screening, Z12.31 TECHNIQUE: Bilateral full field digital CC and MLO mammographic images were obtained with 3D tomosynthesis and utilizing computer aided detection (CAD). COMPARISON: Comparison is made with prior examinations. FINDINGS: Masses/Architectural Distortion: No suspicious masses or areas of architectural distortion are present. Microcalcifications: No suspicious pleomorphic-type are seen. Skin Thickening/Nipple Retraction: None. IMPRESSION: 1. No significant interval change with no specific features of malignancy noted. 2. Unless there is more urgent need, screening mammography is recommended, as per [place] [employer] guidelines. BI-RADS Category 1 - Negative Breast Density - Category C - The breast are heterogeneously dense, which may obscure small masses. Breast density Category C or D implies that the patient has dense breast tissue. Dense breast tissue can make it harder to find cancer on a mammogram. Dense breast tissue is also associated with an increased risk of breast cancer. This information about the result of the mammogram report was provided to the patient to raise their awareness. Use this report when you speak with the patient about their risks for breast cancer, which includes their family history. At that time, you may recommend additional screening tests (Ultrasound or MRI) as these tests may add significant information. A negative radiographic report should not delay biopsy if a dominant or clinically suspicious mass is present. Up to ten percent of cancers are not identified on mammography. A negative report may reinforce clinical impression. Adenosis and dense breasts may obscure an underlying neoplasm. False positive reports average 6 to 10%. Patient will receive a letter notifying them of these results.
== END 2025-02-20 01:50 ==
PROVIDERS: PCP Family Medicine; Visit Provider Family Medicine
DX: Z12.31 Encounter for screening mammogram for malignant neoplasm of breast (principal); R92.333 Mammographic heterogeneous density, bilateral breasts
CPT/HCPCS: 77063; 77067